=== PATIENT | male | born 1935 | race Caucasian/White ===

== ENCOUNTER 2016-10-14 15:34 | Emergency (ER) | payer OTHER ==
[2016-10-14 15:44] VITALS: TEMP 97.9; BMI 23.9
--- NOTE | 2016-10-14 18:26 | PDOC ---
History of Present Illness - General Chief Complaint: Pain Stated Complaint: RT SIDE/ ABD PAIN Time Seen by Provider: 10/14/16 17:11 History Source: Patient - History of Present Illness Timing/Duration: reports: intermittent Past History - Past Medical History Allergies/Adverse Reactions: Allergies Allergy/AdvReac Type Severity Reaction Status Date / Time No Known Allergies Allergy Verified 10/14/16 15:44 Home Medications: Ambulatory Orders Unobtainable [Unobtainable] 10/14/16 Cardiac Disorders: Yes Diabetes: Yes HTN: Yes Hypercholesterolemia: Yes - Surgical History Abdominal Surgery: Yes (hernia) Cardiac Surgery: Yes (BYPASS, PACEMAKER) - Psycho/Social/Smoking Cessation Hx Anxiety: No Suicidal Ideation: No Smoking Status: No Smoking History: Never smoked Number of Cigarettes Smoked Daily: 0 Information on smoking cessation initiated: No Review of Systems - Review of Systems Constitutional: No: Chills, Fever, Unintentional Wgt. Loss ABD/GI: No: Constipated, Diarrhea, Nausea, Vomiting : No: Dysuria, Flank Pain, Hematuria Musculoskeletal: No: Back Pain *Physical Exam - Vital Signs Last Vital Signs Temp Pulse Resp BP Pulse Ox 97.9 F 74 18 181/95 99 10/14/16 15:40 10/14/16 15:40 10/14/16 15:40 10/14/16 15:40 10/14/16 15:40 - Physical Exam General Appearance: Yes: Appropriately Dressed. No: Apparent Distress HEENT: positive: Normal Voice Neck: positive: Supple Respiratory/Chest: positive: Lungs Clear, Normal Breath Sounds. negative: Respiratory Distress Cardiovascular: positive: Regular Rate, S1, S2 Gastrointestinal/Abdominal: positive: Normal Bowel Sounds, Soft, Hernia ( reducible hernia to R inguinal region). negative: Tender, Distended, Guarding, Rebound Musculoskeletal: negative: CVA Tenderness Extremity: positive: Normal Inspection Integumentary: positive: Dry, Warm Neurologic: positive: Fully Oriented, Alert, Normal Mood/Affect ED Treatment Course - RADIOLOGY Radiology Studies Ordered: Category Date Time Status ABDOMEN & PELVIS CT WITH CONTR [CT] Stat CT Scan 10/14/16 18:17 Ordered Medical Decision Making - Medical Decision Making 10/14/16 18:22 81-year-old male history of HTN, HLD, IDDM, CAD, s/p CABG, s/p ? repair of L inguinal hernia remotely, currently has right inguinal hernia, presents with intermittent pain to left groin 3 months. Admits that pain did not get worse today, but decided to come be evaluated for the first time. No nausea, vomiting , constipation, diarrhea, fever or chills. See exam L groin pain x 3 months No associated sxs Pain free in ED Well tracy and stable w/ large reducible hernia to R groin, no obvious hernia to L groin -labs -consider CT 10/14/16 18:25
[2016-10-14 18:45] LABS: BASOPHIL 0.3 % (0-2.0); EOSINOPHIL 1.1 % (0-4.5); MCH 25.9 pg (25.7-33.7); MEAN CELL VOLUME 80.8 fl (80-96); MEAN PLT VOLUME 8.2 fl (7.5-11.1); NEUTROPHILS 61.7 % (42.8-82.8); PLATELET COUNT 91 K/MM3 (134-434); RDW 18.5 % (11.9-15.9); WHITE BLOOD COUNT 4.7 K/mm3 (4.0-10.0)
[2016-10-14 19:07] LABS: ANION GAP 9 (8-16); CALCIUM 9.2 mg/dL (8.5-10.1); CO2 28 mmol/L (21-32); CREATININE 1.4 mg/dL (0.7-1.3); GLUCOSE,RANDOM 95 mg/dL (74-106); SGOT/AST 18 U/L (15-37); SGPT/ALT 12 U/L (12-78)
[2016-10-14 19:09] LABS: ALK PHOS 102 U/L (45-117); BILIRUBIN,TOTAL 0.7 mg/dL (0.2-1.0); TOT PROT 7.9 g/dl (6.4-8.2)
--- NOTE | 2016-10-14 19:36 | PDOC ---
*Physical Exam - Vital Signs Last Vital Signs Temp Pulse Resp BP Pulse Ox 97.9 F 74 18 181/95 99 10/14/16 15:40 10/14/16 15:40 10/14/16 15:40 10/14/16 15:40 10/14/16 15:40 ED Treatment Course - LABORATORY CBC & Chemistry Diagram: 10/14/16 18:07 10/14/16 18:07 - ADDITIONAL ORDERS Additional order review: Laboratory Results 10/14/16 18:07 Sodium 138 Potassium 4.2 Chloride 101 Carbon Dioxide 28 Anion Gap 9 BUN 28 H D Creatinine 1.4 H D Creat Clearance w eGFR 48.40 Random Glucose 95 D Calcium 9.2 Total Bilirubin 0.7 D AST 18 D ALT 12 D Alkaline Phosphatase 102 Total Protein 7.9 Albumin 4.0 Lipase 174 10/14/16 18:07 RBC 3.06 L D MCV 80.8 MCHC 32.0 RDW 18.5 H D MPV 8.2 Neutrophils % 61.7 D Lymphocytes % 26.9 D Monocytes % 10.0 D Eosinophils % 1.1 D Basophils % 0.3 - RADIOLOGY Radiology Studies Ordered: Category Date Time Status ABDOMEN & PELVIS CT W/O CONTR [CT] Stat CT Scan 10/14/16 19:35 Ordered Medical Decision Making - Medical Decision Making 10/14/16 22:00 CT reviewed. "CT report as follows: Interval enlargement of focal mass lesion noted in the centered immediately below the aortic bifurcation. This lesion demonstrates soft tissue density could be on a basis of lymphadenopathy or given the location process possibly representing a pheochromocytoma. 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 No CT evidence of acute appendicitis or diverticulitis. Marked prostate enlargement. Right hip joint space narrowing. Comparison to previous study. A ventricular stent is seen within the partially imaged descending thoracic aorta extending into the upper abdominal aorta the fusiform aortic aneurysm at the level appears mildly increased in diameter currently measuring 4.7 cm previously 4.4 cm. Right inguinal hernia is again noted any short segment of small bowel loop no bowel dilatation is seen." No acute findingd. will refer patient to pmd for close monitoring. strict return precautions reviewed with patient. *DC/Admit/Observation/Transfer Diagnosis at time of Disposition: Inguinal hernia of right side without obstruction or gangrene - Discharge Dispostion Disposition: HOME - Patient Instructions Printed Discharge Instructions: Groin Hernia -- Adult Additional Instructions: follow up with your doctor as soon as possible. return to the ER if symptoms worsen.
[2016-10-14] MEDS ORDERED: amLODIPine BESYLATE 10 MG TABLET (FP) PO ONE (19:52)
[2016-10-14] MEDS ORDERED: amLODIPine BESYLATE 5 MG TABLET (FP) ONE (19:53)
[2016-10-14 22:44] VITALS: BP 146/82; PULSE 70
== END 2016-10-14 22:44 | disposition home or self-care (01) ==
LOC: JER 15:34
DX: R10.32 Left lower quadrant pain (principal); K40.90 Unilateral inguinal hernia, without obstruction or gangrene, not specified as recurrent; E11.9 Type 2 diabetes mellitus without complications; E78.00 Pure hypercholesterolemia, unspecified; Z95.1 Presence of aortocoronary bypass graft; Z95.0 Presence of cardiac pacemaker
CPT/HCPCS: 36415; 74176-TC; 80053; 82272; 83690; 85025; 99282-25

== ENCOUNTER 2017-01-19 16:18 | Emergency (ER) | payer OTHER ==
[2017-01-19 16:30] VITALS: PULSE 77; TEMP 97.5; BMI 23.0
--- NOTE | 2017-01-19 17:11 | PDOC ---
History of Present Illness - General Chief Complaint: Blood Pressure Problem Stated Complaint: BLOOD PRESSURE PROBLEM Time Seen by Provider: 01/19/17 16:44 History Source: Patient Exam Limitations: No Limitations - History of Present Illness Initial Comments: 01/19/17 17:12 81y M hx of CAD s/p CABG, sp PM, htn, hl, dm, hypothrydoism,bph, presents for evaluation of hypertension. The pt was at the PMDs office for follow up and they found his BP to be 210/110. He was given an extra dose of his amlodipine, but his BP did not improve substantially so was sent to the ED for evaluation. The pt denies any compalints including dizziness, headache, vision changes, numbness/tingling/weakness, chest pain, shortness of breath. pt states he has been complaint with his medications. denies significant caffeien use (only 1 cup of coffee in the AM which is his baseline) - no OTC meds, no recent uris. social: denies any recreational drug use. surgical: cabg, s/p pm PMD dr. Mccracken Past History - Past Medical History Allergies/Adverse Reactions: Allergies Allergy/AdvReac Type Severity Reaction Status Date / Time No Known Allergies Allergy Verified 01/19/17 16:30 Home Medications: Ambulatory Orders Amlodipine Besylate 10 mg PO DAILY 01/19/17 Aspirin [Amanda Chewable] 81 mg PO DAILY 01/19/17 Atorvastatin Ca [Lipitor] 20 mg PO HS 01/19/17 Carvedilol [Coreg] 6.25 mg PO BID 01/19/17 Ferrous Sulfate [Feosol] 325 mg PO DAILY 01/19/17 Glipizide [Glucotrol Xl] 10 mg PO BID 01/19/17 Levothyroxine [Synthroid -] 125 mcg PO DAILY 01/19/17 Linagliptin [Tradjenta] 01/19/17 Linagliptin [Tradjenta] 5 mg PO 01/19/17 Losartan/Hydrochlorothiazide [Losartan-Hctz 50-12.5 mg Tab] 1 each PO DAILY 07/03 Cardiac Disorders: Yes (Pacemaker) Diabetes: Yes HTN: Yes Hypercholesterolemia: Yes Thyroid Disease: Yes - Surgical History Abdominal Surgery: Yes (hernia) Cardiac Surgery: Yes (BYPASS, PACEMAKER) - Suicide/Smoking/Psychosocial Hx Smoking Status: No Smoking History: Never smoked Have you smoked in the past 12 months: No Number of Cigarettes Smoked Daily: 0 Information on smoking cessation initiated: No Hx Alcohol Use: No Drug/Substance Use Hx: No Substance Use Type: None Review of Systems - Review of Systems Able to Perform ROS?: Yes Comments:: 01/19/17 17:21 Constitutional - no reported Fever, Chills, HEENT: no reported vision changes, sore throat Respiratory: no reported cough, sob, hemoptysis Cardiac: no reported chest pain, palpitations, light headedness, leg swelling Abd/GI: no reported abd pain, nausea, vomiting, blood per rectum, melena, diarrhea : no reported dysuria, frequency, discharge Musculskelatal - no reported back pain, joint swelling skin - no reported bruising, erythema, rash neurological: no reported headache, numbness, focal weakness, tingling, ataxia, hematologic: no reported anemia, easy bruising, easy bleeding *Physical Exam - Vital Signs Last Vital Signs Temp Pulse Resp BP Pulse Ox 97.5 F L 77 16 205/116 98 01/19/17 16:28 01/19/17 16:28 01/19/17 16:28 01/19/17 16:28 01/19/17 16:28 - Physical Exam Comments: 01/19/17 17:22 GENERAL: The patient is awake, alert, and fully oriented, Nontoxic - in no acute distress. HEAD: Normocephalic, atraumatic. EYES: extraocular movements intact, sclera anicteric, conjunctiva clear. ENT: Normal voice, Moist mucous membranes. NECK: Normal range of motion, supple LUNGS: Breath sounds equal, clear to auscultation bilaterally. No wheezes, no rhonchi, no rales. HEART: well healed mid line sternatomy scar, pm in placeRegular rate and rhythm , normal S1 and S2 without murmur, rub or gallop. ABDOMEN: Soft, nontender, normoactive bowel sounds. No guarding, no rebound. . No CVA tenderness EXTREMITIES: Normal range of motion, trace edema. No clubbing or cyanosis. No cords, erythema, or tenderness. NEUROLOGICAL: No facial assymetry, Normal speech, PSYCH: Normal mood, normal affect. SKIN: Warm, Dry, normal turgor, Heart Score/ECG Review - ECG Impressions Comment:: 01/19/17 17:23 Twelve-lead EKG was performed and reviewed by me. Atrial sensed ventricular pacing rate of 75 Medical Decision Making - Medical Decision Making 01/19/17 17:23 81y M hx of dm, htn, hl, cad, bph, hypothyfoidsim sent to the ED for eavluation of hypertension. pt otherwise asypmtmatic with unremarakble exam pts receved dose of htn meds approx 2 hrs ago at PMD office will reasess bp, if normal will consider d/c with outpatient management 01/19/17 17:46 bp significantly improved will dc the pt with pmd fu for bp check return precautions were discussed I discussed the physical exam findings, ancillary test results and final diagnoses with the patient. I answered all of the patient's questions. The patient was satisfied with the care received and felt comfortable with the discharge plan and treatment plan. The patient will call their primary care physician within 24 hours to arrange follow-up and will return to the Emergency Department with any new, persistent or worsening symptoms. *DC/Admit/Observation/Transfer Diagnosis at time of Disposition: Hypertension Qualifiers: Hypertension type: essential hypertension Qualified Code(s): I10 - Essential ( primary) hypertension - Discharge Dispostion Disposition: HOME Condition at time of disposition: Improved Admit: No - Referrals Referrals: Olive Mccracken MD [Primary Care Provider] - - Patient Instructions Printed Discharge Instructions: DI for High Blood Pressure, How to Monitor Your Blood Pressure at Home Additional Instructions: Vuelva al departamento de emergencia inmediatamente con CUALQUIER nuevo, persistente o empeorando sntomas. Debe llamar y hacer el seguimiento con matthews mdico en 2 hall para maurice evaluacin m s detallada de jeb sntomas. Los resultados fueron discutidos con usted. Por favor, asegrese de que matthews mdico revise los resultados de matthews evaluacin de emergencia. Si usted tuvo alguna radiografa migdalia matthews visita, fue yanick preliminarmente por m mismo, un radilogo lo revisar y si hay algn hallazgo adicional le llamaremos. Return to the emergency department immediately with ANY new, persistent or worsening symptoms. You MUST call and follow up with your doctor in 2 days for further evaluation of your symptoms. Results were discussed with you. Please make sure your doctor reviews the results of your emergency evaluation. If you had any xrays during your visit, it was read preliminarily by myself, a Radiologist will review it and if there are any additional findings we will call you. Print Language: ROMANIAN
[2017-01-19 17:37] VITALS: BP 162/89
--- NOTE | 2017-01-20 10:40 | EKG ---
Test Reason : Blood Pressure : / mmHG Vent. Rate : 075 BPM Atrial Rate : 075 BPM P-R Int : 118 ms QRS Dur : 142 ms QT Int : 416 ms P-R-T Axes : 050 219 035 degrees QTc Int : 464 ms Atrial-sensed ventricular-paced rhythm WITH OCCASIONAL PREMATURE VENTRICULAR COMPLEXES Biventricular pacemaker detected ABNORMAL ECG WHEN COMPARED WITH ECG OF 24-AUG-2011 11:28, PREMATURE VENTRICULAR COMPLEXES ARE NOW PRESENT VENT. RATE HAS DECREASED BY 38 BPM Confirmed by SANDEEP BUTLER MD ([id number]) on 01/20/2017 10:40:33 AM Referred By: Confirmed By:SANDEEP BUTLER MD
== END 2017-01-19 18:08 | disposition home or self-care (01) ==
LOC: JER 16:18
DX: I10 Essential (primary) hypertension (principal); I25.810 Atherosclerosis of coronary artery bypass graft(s) without angina pectoris; Z95.1 Presence of aortocoronary bypass graft; Z95.0 Presence of cardiac pacemaker; E11.9 Type 2 diabetes mellitus without complications; E78.00 Pure hypercholesterolemia, unspecified; N40.0 Benign prostatic hyperplasia without lower urinary tract symptoms
CPT/HCPCS: 93005; 93010; 99282-25

== ENCOUNTER 2017-10-01 13:05 | Emergency (ER) | payer OTHER ==
[2017-10-01 13:16] VITALS: BMI 25.7
[2017-10-01 13:27] LABS: BASO % 0.7 % (0-2.0); EOS % 0.2 % (0-4.5); HEMATOCRIT 37.7 % (35.4-49); HEMOGLOBIN 12.7 GM/dL (11.7-16.9); LYMPH % 19.2 % (8-40); MCH 29.1 pg (25.7-33.7); MCHC 33.8 g/dl (32.0-35.9); MEAN CELL VOLUME 86.1 fl (80-96); MONO % 8.9 % (3.8-10.2); PLATELET COUNT 112 K/MM3 (134-434); RBC 4.38 M/mm3 (4.00-5.60); RDW 16.2 % (11.9-15.9); WHITE BLOOD COUNT 5.8 K/mm3 (4.0-10.0)
[2017-10-01 13:51] LABS: ALBUMIN 3.7 g/dl (3.4-5.0); ANION GAP 5 (8-16); BLOOD UREA NITROGEN 33 mg/dL (7-18); CHLORIDE 102 mmol/L (98-107); CO2 29 mmol/L (21-32); CREATININE 1.5 mg/dL (0.7-1.3); GLUCOSE,RANDOM 222 mg/dL (74-106); POTASSIUM 4.2 mmol/L (3.5-5.1); SGOT/AST 22 U/L (15-37); SGPT/ALT 23 U/L (12-78); SODIUM 136 mmol/L (136-145)
[2017-10-01 13:54] LABS: ALK PHOS 123 U/L (45-117); BILIRUBIN,TOTAL 1.1 mg/dL (0.2-1.0); TOT PROT 8.1 g/dl (6.4-8.2)
--- NOTE | 2017-10-01 14:16 | PDOC ---
History of Present Illness <Rick Peacock - Last Filed: 10/01/17 14:34> <Jim Hernandez - Last Filed: 10/01/17 15:26> - General Chief Complaint: Blood Pressure Problem Stated Complaint: HTN Time Seen by Provider: 10/01/17 13:18 - History of Present Illness Initial Comments: 10/01/17 14:16 81y M hx of CAD s/p CABG, sp PM, htn, hl, dm, hypothrydoism,bph, presents for evaluation of hypertension. The pt was at the Ds office for follow up and they found his BP in the 200's. Sent to ED for evaluation. Patient currently asymptomatic. 10/01/17 14:33 (Rick Peacock) Past History - Past Medical History Cardiac Disorders: Yes (Pacemaker) COPD: No Diabetes: Yes HTN: Yes Hypercholesterolemia: Yes Thyroid Disease: Yes - Surgical History Abdominal Surgery: Yes (hernia) Cardiac Surgery: Yes (BYPASS, PACEMAKER) - Immunization History Immunization Up to Date: Yes - Suicide/Smoking/Psychosocial Hx Smoking Status: No Smoking History: Never smoked Have you smoked in the past 12 months: No Number of Cigarettes Smoked Daily: 0 Hx Alcohol Use: No Drug/Substance Use Hx: No Substance Use Type: None <Rick Peacock - Last Filed: 10/01/17 14:34> <Jim Hernandez - Last Filed: 10/01/17 15:26> - Past Medical History Allergies/Adverse Reactions: Allergies Allergy/AdvReac Type Severity Reaction Status Date / Time No Known Allergies Allergy Verified 01/19/17 16:30 Home Medications: Ambulatory Orders Amlodipine Besylate 10 mg PO DAILY 01/19/17 Aspirin [Amanda Chewable] 81 mg PO DAILY 01/19/17 Atorvastatin Ca [Lipitor] 20 mg PO HS 01/19/17 Carvedilol [Coreg] 6.25 mg PO BID 01/19/17 Ferrous Sulfate [Feosol] 325 mg PO DAILY 01/19/17 Glipizide [Glucotrol Xl] 10 mg PO BID 01/19/17 Levothyroxine [Synthroid -] 125 mcg PO DAILY 01/19/17 Linagliptin [Tradjenta] 01/19/17 Linagliptin [Tradjenta] 5 mg PO 01/19/17 Losartan/Hydrochlorothiazide [Losartan-Hctz 50-12.5 mg Tab] 1 each PO DAILY 07/03 Review of Systems - Review of Systems Able to Perform ROS?: Yes Is the patient limited Belarusian proficient: No Constitutional: No: Symptoms Reported HEENTM: No: Symptoms Reported Respiratory: No: Symptoms reported Cardiac (ROS): No: Symptoms Reported ABD/GI: No: Symptoms Reported : No: Symptoms Reported Musculoskeletal: No: Symptoms Reported Integumentary: No: Symptoms Reported Neurological: No: Symptoms reported All Other Systems: Reviewed and Negative <Rick Peacock - Last Filed: 10/01/17 14:34> *Physical Exam - Physical Exam General Appearance: Yes: Nourished, Appropriately Dressed. No: Apparent Distress HEENT: positive: LEAH, Normal ENT Inspection Respiratory/Chest: positive: Lungs Clear, Normal Breath Sounds. negative: Chest Tender, Respiratory Distress Cardiovascular: positive: Regular Rhythm, Regular Rate, S1, S2 Gastrointestinal/Abdominal: positive: Normal Bowel Sounds, Flat, Soft. negative : Tender Musculoskeletal: positive: Normal Inspection. negative: CVA Tenderness Extremity: positive: Normal Capillary Refill, Normal Inspection, Normal Range of Motion Neurologic: positive: Fully Oriented, Alert, Normal Mood/Affect, Normal Response , Motor Strength 5/5 <Rick Peacock - Last Filed: 10/01/17 14:34> - Vital Signs Last Vital Signs Temp Pulse Resp BP Pulse Ox 97.4 F L 65 20 175/84 98 10/01/17 13:14 10/01/17 13:14 10/01/17 13:14 10/01/17 13:14 10/01/17 13:17 ED Treatment Course - LABORATORY CBC & Chemistry Diagram: 10/01/17 13:14 10/01/17 13:14 <Rick Peacock - Last Filed: 10/01/17 14:34> - LABORATORY CBC & Chemistry Diagram: 10/01/17 13:14 10/01/17 13:14 <Jim Hernandez - Last Filed: 10/01/17 15:26> - ADDITIONAL ORDERS Additional order review: Laboratory Results 10/01/17 13:14 Sodium 136 Potassium 4.2 Chloride 102 Carbon Dioxide 29 Anion Gap 5 L BUN 33 H Creatinine 1.5 H Creat Clearance w eGFR 44.59 Random Glucose 222 H D Calcium 9.0 Total Bilirubin 1.1 H D AST 22 D ALT 23 D Alkaline Phosphatase 123 H D Total Protein 8.1 Albumin 3.7 10/01/17 13:14 RBC 4.38 D MCV 86.1 MCHC 33.8 RDW 16.2 H MPV 8.0 Neutrophils % 71.0 Lymphocytes % 19.2 D Monocytes % 8.9 Eosinophils % 0.2 D Basophils % 0.7 - Medications Given in the ED: ED Medications Discontinued Medications Generic Name Dose Route Start Last Admin Trade Name Bi PRN Reason Stop Dose Admin Hydralazine HCl 10 mg 10/01/17 14:21 10/01/17 14:39 Apresoline Injection - IVPUSH 10/01/17 14:22 10 mg ONCE ONE Administration Medical Decision Making <Rick Peacock - Last Filed: 10/01/17 14:34> <Jim Hernandez - Last Filed: 10/01/17 15:26> - Medical Decision Making 10/01/17 14:34 82m sent from pcp for hypertensive urgency, asymptomatic. Basic labs, xray ray sent. - BP control with hydralizine. (Rick Peacock) *DC/Admit/Observation/Transfer - Discharge Dispostion Decision to Admit order: Yes <Rick Peacock - Last Filed: 10/01/17 14:34> <Jim Hernandez - Last Filed: 10/01/17 15:26> Diagnosis at time of Disposition: Asymptomatic hypertensive urgency - Discharge Dispostion Condition at time of disposition: Stable - Referrals Referrals: Mathew Desai MD [Primary Care Provider] - - Patient Instructions Printed Discharge Instructions: DI for High Blood Pressure Additional Instructions: Eat a low sodium diet. Take hydralazine new medication as prescribed. 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 Veronica Romero on Wednesday. Follow-up with her primary care provider on Wednesday Return to ED for any headache chest pain severe worsening symptoms or for any concerns. - Post Discharge Activity
[2017-10-01] MEDS ORDERED: hydrALAZINE HCL 20 MG/ML VIAL IVPUSH ONE (14:21)
--- NOTE | 2017-10-01 14:26 | PDOC ---
Attending Attestation - HPI HPI: 10/01/17 14:40 The patient is an 82 year old male with a significant past medical history of cardiac disorders (on pacemaker), hypertension, hyperlipidemia, hypothyroidism, and diabetes who presents to the emergency department for evaluation of high blood pressure (above 200). The patient reports being seen by Dr. Mccracken who advised him to visit the emergency department for admission secondary to hypertensive urgency. At presentation, the patient is asymptomatic. The patient denies chest pain, shortness of breath, headache, and dizziness. Denies fevers, chills, nausea, vomiting, diarrhea, and constipation. Allergies: NKDA Past surgical history: Hernia, pacemaker. Social history: No reported cigarette, alcohol, or drug use. PCP: Dr. Mathew Desai ([phone]) - Physicial Exam PE: Vitals: Triage Vital signs reviewed General Appearance: no acute distress, well nourished well developed, Head: Atraumatic, normocephalic Neck: Supple Chest Wall: Nontender Cardiac: Regular rate and rhythm, no murmurs, no rubs, no gallops, Lungs: Clear to auscultation bilateral, good air movement bilaterally, Abdomen: Soft, nondistended, normal bowel sounds, nontender to palpation Extremities: Full range of motion to all extremities, no cyanosis, clubbing, or edema Skin: Warm and dry, no rashes or lesions, no petechiae Psych: normal mood, normal affect - Medical Decision Making The patient is an 82 year old male with a significant past medical history of cardiac disorders (on pacemaker), hypertension, hyperlipidemia, hypothyroidism, and diabetes who presents to the emergency department for evaluation of high blood pressure. Plan: Cbc UA Chest X-ray 10/01/17 15:18 Case discussed with ANJEL Pierre under Luis Carlos's service. <Keri Kolb - Last Filed: 10/01/17 15:18> - Resident Resident Name: Rick Peacock - ED Attending Attestation I have performed the following: I have examined & evaluated the patient, The case was reviewed & discussed with the resident, I agree w/resident's findings & plan, Exceptions are as noted - Medical Decision Making Status post 10 mg hydralazine patient's blood pressure now well controlled. Spoke with covering attending we'll recommend by mouth hydralazine at home and follow-up on Wednesday with online retailer. Patient with no complaints at this time. No chest pain dizziness lightheadedness or shortness of breath. Patient in agreement with plan will follow up with cardiology on Wednesday Findings, the need for follow-up and strict return instructions discussed patient. <Jim Hernandez - Last Filed: 10/01/17 18:53> Attestations - Attestations Documentation prepared by Keri Kolb, acting as medical office technologist for Jim Hernandez MD. <Keri Kolb - Last Filed: 10/01/17 15:18>
[2017-10-01] MEDS ORDERED: hydrALAZINE HCL 20 MG/ML VIAL ONE (14:30)
[2017-10-01 14:58] LABS: PLATELET ESTIMATE DECREASED
[2017-10-01 15:38] VITALS: BP 140/80; PULSE 87; TEMP 98.3
[2017-10-01 15:46] LABS: URINE APPEARANCE CLEAR; URINE BILIRUBIN NEGATIVE (<2.0 mg/dL); URINE BLOOD 2+ (NEGATIVE); URINE COLOR YELLOW; URINE GLUCOSE (UA) 3+ (NEGATIVE); URINE KETONE NEGATIVE (NEGATIVE); URINE LEUK ESTERASE NEGATIVE (NEGATIVE); URINE NITRITE NEGATIVE (NEGATIVE); URINE UROBILINOGEN NEGATIVE mg/dL (0.2-1.0)
[2017-10-01 15:47] LABS: URINE PROTEIN 2+ (NEGATIVE)
[2017-10-01 15:48] LABS: EPI CELLS RARE /HPF (FEW); URINE HYALINE CAST 24 /lpf; URINE MUCUS RARE
--- NOTE | 2017-10-02 08:34 | EKG ---
Test Reason : Blood Pressure : / mmHG Vent. Rate : 068 BPM Atrial Rate : 068 BPM P-R Int : 116 ms QRS Dur : 130 ms QT Int : 424 ms P-R-T Axes : 044 203 042 degrees QTc Int : 450 ms Atrial-sensed ventricular-paced rhythm Biventricular pacemaker detected ABNORMAL ECG WHEN COMPARED WITH ECG OF 19-JAN-2017 16:58, PREMATURE VENTRICULAR COMPLEXES ARE NO LONGER PRESENT VENT. RATE HAS DECREASED BY 7 BPM Confirmed by CARRIE MITCHELL, SANDEEP ([id number]) on 10/02/2017 8:33:46 AM Referred By: Confirmed By:SANDEEP BUTLER MD
== END 2017-10-01 16:04 | disposition home or self-care (01) ==
LOC: JER 13:05
PROC: 3E033GC Introduction of Other Therapeutic Substance into Peripheral Vein, Percutaneous Approach (ICD-10-PCS; principal; 2017-10-01)
DX: I16.0 Hypertensive urgency (principal); I25.810 Atherosclerosis of coronary artery bypass graft(s) without angina pectoris; I10 Essential (primary) hypertension; Z95.1 Presence of aortocoronary bypass graft; Z95.0 Presence of cardiac pacemaker; E11.9 Type 2 diabetes mellitus without complications; Z79.84 Long term (current) use of oral hypoglycemic drugs; E78.00 Pure hypercholesterolemia, unspecified; E03.9 Hypothyroidism, unspecified; N40.0 Benign prostatic hyperplasia without lower urinary tract symptoms; Z79.82 Long term (current) use of aspirin
CPT/HCPCS: 36415; 71045-TC-FY; 80053; 81003; 81015; 85025; 93005; 93010; 96374; 99283-25

== ENCOUNTER 2020-03-05 12:39 | Inpatient (IN) | payer OTHER ==
[2020-03-05 12:47] VITALS: BMI 26.2
[2020-03-05 13:53] LABS: BASO % 0.5 % (0-2.0); EOS % 0.2 % (0-4.5); HEMOGLOBIN 10.4 GM/dL (11.7-16.9); LYMPH % 8.6 % (8-40); MCHC 32.4 g/dl (32.0-35.9); MEAN CELL VOLUME 80.3 fl (80-96); MEAN PLT VOLUME 7.3 fl (7.5-11.1); MONO % 18.2 % (3.8-10.2); NEUT % 72.5 % (42.8-82.8); PLATELET COUNT 108 K/MM3 (134-434); RBC 3.98 M/mm3 (4.00-5.60); RDW 17.1 % (11.9-15.9); WHITE BLOOD COUNT 3.2 K/mm3 (4.0-10.0)
[2020-03-05 13:57] LABS: EPI CELLS 13 /uL (0-25.1); HYALINE CASTS 11 /uL (0-3.1); URINE APPEARANCE CLEAR; URINE BACTERIA 11 /uL (0-1359); URINE BILIRUBIN NEGATIVE (NEGATIVE); URINE COLOR DK YELLOW; URINE GLUCOSE (UA) NEGATIVE (NEGATIVE); URINE KETONE TRACE (NEGATIVE); URINE LEUK ESTERASE NEGATIVE (NEGATIVE); URINE NITRITE NEGATIVE (NEGATIVE); URINE PROTEIN 1+ (NEGATIVE); URINE RBC 7 /uL (0-23.9); URINE WBC 6 /uL (0-25.8)
[2020-03-05] MEDS ORDERED: morphine CARPU-JECT 4 MG/1 ML DISP.SYRIN IVPUSH ONE (14:00)
[2020-03-05] MEDS ORDERED: SODIUM CHLORIDE 1,000 ML IV STA ×2 (14:00→17:25)
[2020-03-05 14:04] LABS: INR 1.13 (0.83-1.09); PROTHROMBIN TIME (PATIENT) 13.9 SEC (9.7-13.0)
[2020-03-05 14:06] LABS: ACTIVATED PTT 32.1 SECONDS (25.2-36.5)
[2020-03-05 14:17] LABS: CHLORIDE 100 mmol/L (98-107); POTASSIUM 4.1 mmol/L (3.5-5.1); SODIUM 134 mmol/L (136-145)
[2020-03-05 14:19] LABS: ALBUMIN 3.1 g/dl (3.4-5.0); ANION GAP 10 MMOL/L (8-16); BLOOD UREA NITROGEN 35.4 mg/dL (7-18); CALCIUM 9.9 mg/dL (8.5-10.1); CO2 24 mmol/L (21-32); GLUCOSE,RANDOM 207 mg/dL (74-106)
[2020-03-05 14:22] LABS: CREATININE 1.6 mg/dL (0.55-1.3); SGOT/AST 23 U/L (15-37); SGPT/ALT 12 U/L (13-61)
[2020-03-05 14:24] LABS: BILIRUBIN,TOTAL 1.2 mg/dL (0.2-1)
[2020-03-05 14:25] LABS: ALK PHOS 212 U/L (45-117)
[2020-03-05] MEDS ORDERED: morphine SULFATE 4 MG/ML VIAL ONE (14:41)
[2020-03-05 15:13] LABS: ANISOCYTOSIS 0; MACROCYTOSIS 0; PLATELET ESTIMATE DECREASED
[2020-03-05] MEDS ORDERED: ACETAMINOPHEN 1000 MG/100 ML VIAL (NON FORMULARY) IVPB ONE (18:17)
[2020-03-05] MEDS ORDERED: ACETAMINOPHEN INJECTION 100 ML IVPB ONE (18:38)
[2020-03-05] MEDS ORDERED: SODIUM CHLORIDE 1,000 ML IV SCH (20:00)
[2020-03-05] MEDS ORDERED: FUROSEMIDE 40 MG/4 ML INJECTABLE VIAL IVPUSH ONE (20:33)
[2020-03-05] MEDS ORDERED: ATORVASTATIN CA 20 MG TABLET (FP) PO SCH (22:00)
[2020-03-05] MEDS ORDERED: FUROSEMIDE 40 MG/4 ML INJECTABLE VIAL ONE (22:37)
[2020-03-05] MEDS: INSULIN SLIDING SCALE (NOVOLOG) 1 VIAL SQ SCH (22:43)
[2020-03-05] MEDS ORDERED: ENOXAPARIN NA (PORCINE) 30 MG/0.3 ML DISP.SYRIN SQ ONE (23:42)
[2020-03-05] MEDS: ENOXAPARIN NA (PORCINE) 30 MG/0.3 ML DISP.SYRIN SQ SCH (23:47)
[2020-03-06 06:07] LABS: HEMATOCRIT 29.6 % (35.4-49); HEMOGLOBIN 9.6 GM/dL (11.7-16.9); MCH 26.1 pg (25.7-33.7); MCHC 32.3 g/dl (32.0-35.9); MEAN CELL VOLUME 80.7 fl (80-96); MEAN PLT VOLUME 7.3 fl (7.5-11.1); PLATELET COUNT 100 K/MM3 (134-434); RBC 3.67 M/mm3 (4.00-5.60); RDW 17.4 % (11.9-15.9); WHITE BLOOD COUNT 2.8 K/mm3 (4.0-10.0)
[2020-03-06 06:17] LABS: POTASSIUM 3.9 mmol/L (3.5-5.1)
[2020-03-06 06:19] LABS: BLOOD UREA NITROGEN 32.4 mg/dL (7-18); CALCIUM 8.6 mg/dL (8.5-10.1); MAGNESIUM 1.6 mg/dL (1.8-2.4)
[2020-03-06 06:23] LABS: PHOSPHOROUS 4.2 mg/dL (2.5-4.9)
[2020-03-06 06:24] LABS: CREATININE 1.3 mg/dL (0.55-1.3)
[2020-03-06] MEDS ORDERED: LEVOTHYROXINE NA 25 MCG TABLET (FP) ONE (06:42)
[2020-03-06] MEDS: INSULIN SLIDING SCALE (NOVOLOG) 1 VIAL SQ SCH ×4 (06:54→21:05)
[2020-03-06] MEDS: LEVOTHYROXINE NA 75 MCG TABLET (FP) PO SCH (06:55)
[2020-03-06] MEDS ORDERED: TAMSULOSIN HCL 0.4 MG CAP ONE (08:41)
[2020-03-06] MEDS: TAMSULOSIN HCL 0.4 MG CAP PO SCH (08:49)
[2020-03-06] MEDS ORDERED: amLODIPine BESYLATE 5 MG TABLET (FP) PO SCH (10:00)
[2020-03-06] MEDS: ASPIRIN COATED 81 MG TABLET.EC PO SCH (11:49)
[2020-03-06 12:14] LABS: ALBUMIN 2.8 g/dl (3.4-5.0)
[2020-03-06 12:17] LABS: BILIRUBIN,DIRECT 0.6 mg/dL (0.0-0.2)
[2020-03-06 12:19] LABS: BILIRUBIN,TOTAL 1.4 mg/dL (0.2-1)
[2020-03-06] MEDS ORDERED: MAGNESIUM SULF 50% (8.12 MEQ/2 ML-1 GM VIAL) IVPB ONE (12:32)
[2020-03-06 15:26] LABS: HIV INTERPRETATION NEGATIVE (NEGATIVE)
[2020-03-06] MEDS: ENOXAPARIN NA (PORCINE) 30 MG/0.3 ML DISP.SYRIN SQ SCH (17:12)
[2020-03-07] MEDS: LEVOTHYROXINE NA 75 MCG TABLET (FP) PO SCH (06:07)
[2020-03-07] MEDS: INSULIN SLIDING SCALE (NOVOLOG) 1 VIAL SQ SCH ×4 (06:08→21:13)
[2020-03-07 08:03] LABS: BASO % 0.5 % (0-2.0); EOS % 0.3 % (0-4.5); HEMATOCRIT 28.4 % (35.4-49); HEMOGLOBIN 9.3 GM/dL (11.7-16.9); LYMPH % 12.2 % (8-40); MCH 26.1 pg (25.7-33.7); MCHC 32.9 g/dl (32.0-35.9); MEAN CELL VOLUME 79.3 fl (80-96); MEAN PLT VOLUME 7.5 fl (7.5-11.1); MONO % 21.5 % (3.8-10.2); NEUT % 65.5 % (42.8-82.8); PLATELET COUNT 103 K/MM3 (134-434); RBC 3.58 M/mm3 (4.00-5.60); RDW 17.4 % (11.9-15.9); WHITE BLOOD COUNT 2.5 K/mm3 (4.0-10.0)
[2020-03-07 08:30] LABS: POTASSIUM 3.9 mmol/L (3.5-5.1)
[2020-03-07 08:35] LABS: ALBUMIN 2.7 g/dl (3.4-5.0); BLOOD UREA NITROGEN 31.7 mg/dL (7-18); CALCIUM 8.7 mg/dL (8.5-10.1)
[2020-03-07 08:37] LABS: CREATININE 1.3 mg/dL (0.55-1.3)
[2020-03-07 08:40] LABS: BILIRUBIN,TOTAL 1.2 mg/dL (0.2-1); TOT PROT 6.8 g/dl (6.4-8.2)
[2020-03-07] MEDS: TAMSULOSIN HCL 0.4 MG CAP PO SCH (08:47)
[2020-03-07] MEDS: ASPIRIN COATED 81 MG TABLET.EC PO SCH (09:56)
[2020-03-07 10:07] LABS: ANISOCYTOSIS 1+; MACROCYTOSIS 0; PLATELET ESTIMATE DECREASED; TARGET CELLS 1+
[2020-03-07] MEDS: ENOXAPARIN NA (PORCINE) 30 MG/0.3 ML DISP.SYRIN SQ SCH (11:39)
[2020-03-07] MEDS ORDERED: FUROSEMIDE 40 MG TABLET (FP) PO ONE (16:21)
[2020-03-08 01:07] LABS: HEP B CORE AB, TOT Positive (Negative)
[2020-03-08] MEDS: INSULIN SLIDING SCALE (NOVOLOG) 1 VIAL SQ SCH ×3 (06:27→16:16)
[2020-03-08] MEDS: LEVOTHYROXINE NA 75 MCG TABLET (FP) PO SCH (06:28)
[2020-03-08 07:10] LABS: BASO % 0.3 % (0-2.0); EOS % 0.4 % (0-4.5); HEMATOCRIT 29.9 % (35.4-49); HEMOGLOBIN 9.7 GM/dL (11.7-16.9); LYMPH % 14.7 % (8-40); MCHC 32.5 g/dl (32.0-35.9); MEAN CELL VOLUME 80.1 fl (80-96); MEAN PLT VOLUME 7.3 fl (7.5-11.1); MONO % 20.3 % (3.8-10.2); NEUT % 64.3 % (42.8-82.8); PLATELET COUNT 106 K/MM3 (134-434); RBC 3.74 M/mm3 (4.00-5.60); RDW 17.5 % (11.9-15.9); WHITE BLOOD COUNT 2.6 K/mm3 (4.0-10.0)
[2020-03-08 07:20] LABS: POTASSIUM 3.9 mmol/L (3.5-5.1)
[2020-03-08 07:24] LABS: ALBUMIN 2.9 g/dl (3.4-5.0); BLOOD UREA NITROGEN 29.8 mg/dL (7-18); CALCIUM 9.1 mg/dL (8.5-10.1)
[2020-03-08 07:28] LABS: CREATININE 1.4 mg/dL (0.55-1.3)
[2020-03-08 07:29] LABS: BILIRUBIN,TOTAL 1.1 mg/dL (0.2-1)
[2020-03-08] MEDS: TAMSULOSIN HCL 0.4 MG CAP PO SCH (08:30)
[2020-03-08] MEDS: ENOXAPARIN NA (PORCINE) 30 MG/0.3 ML DISP.SYRIN SQ SCH (09:36)
[2020-03-08 09:54] VITALS: BP 114/62; PULSE 106; TEMP 98.4
[2020-03-08] MEDS ORDERED: CARVEDILOL 6.25 MG TABLET (FP) PO SCH (10:00)
[2020-03-08 10:59] LABS: ANISOCYTOSIS 1+; MACROCYTOSIS 1+; OVALOCYTE 1+; PLATELET ESTIMATE DECREASED
[2020-03-08] MEDS ORDERED: ATORVASTATIN CA 20 MG TABLET (FP) PO SCH (22:00)
== END 2020-03-08 16:44 | disposition home or self-care (01) | DRG 433 ==
LOC: JER 12:39 → JERBED 20:35 → MERGE 20:35 → J6WEST-2 03-06 09:56
PROVIDERS: ADMIT Hospitalist; ATTEND Family Medicine
DX: K74.60 Unspecified cirrhosis of liver (principal); J90 Pleural effusion, not elsewhere classified; N17.9 Acute kidney failure, unspecified; E87.2 Acidosis; D61.818 Other pancytopenia; E83.42 Hypomagnesemia; R59.1 Generalized enlarged lymph nodes; D64.9 Anemia, unspecified; I10 Essential (primary) hypertension; E11.9 Type 2 diabetes mellitus without complications; E03.9 Hypothyroidism, unspecified; N40.0 Benign prostatic hyperplasia without lower urinary tract symptoms; I25.10 Atherosclerotic heart disease of native coronary artery without angina pectoris; Z95.1 Presence of aortocoronary bypass graft; E78.5 Hyperlipidemia, unspecified; D69.6 Thrombocytopenia, unspecified; D72.819 Decreased white blood cell count, unspecified
CPT/HCPCS: 36415; 71045-TC-FY; 71275-TC; 74177-TC; 80048; 80053; 80076; 81003; 82105; 82232; 82272; 82607; 82728; 82746; 82962; 83036; 83516; 83540; 83550; 83605; 83735; 83880; 84100; 84155; 84165; 84443; 84484; 85025; 85027; 85045; 85610; 85730; 86038; 86704; 86706; 86707; 86708; 86709; 87040; 87086; 87340; 87389; 88300-TC; 93005; 93010; 93306-TC; 99285-25; C9803; J0131; U0003

== ENCOUNTER 2020-03-12 05:17 | Day surgery (SDC) | payer OTHER ==
[2020-03-11 15:46] VITALS: BMI 26.2
[2020-03-12 13:32] VITALS: BP 116/65; PULSE 104; TEMP 97.3
[2020-03-12 13:47] LABS: BF WBC & OTHER NUCLEATED CELLS 546 /mm3
[2020-03-12 15:00] LABS: BODY FLUID MACROPHAGES 18 %; BODY FLUID MESOTHELIAL 6 %
[2020-03-14 12:07] LABS: BODY FLUID ALBUMIN 2.7 g/dL (Not Estab.)
== END 2020-03-12 14:20 | disposition home or self-care (01) ==
LOC: JRADIR 05:17
PROVIDERS: ATTEND Family Medicine
PROC: 0W993ZZ Drainage of Right Pleural Cavity, Percutaneous Approach (ICD-10-PCS; principal; 2020-03-12)
PROC: BB4BZZZ Ultrasonography of Pleura (ICD-10-PCS; 2020-03-12)
DX: J90 Pleural effusion, not elsewhere classified (principal)
CPT/HCPCS: 36415; 71045-TC-FY; 76942; 82042; 82150; 82438; 82945; 83615; 83986; 84157; 84478; 87070; 87075; 87102; 87116; 87205; 87206; 87210; 88108; 88305-TC

== ENCOUNTER 2020-03-25 14:19 | Inpatient (IN) | payer OTHER ==
[2020-03-25 16:54] LABS: BASO % 0.5 % (0-2.0); EOS % 0.6 % (0-4.5); HEMATOCRIT 33.3 % (35.4-49); HEMOGLOBIN 10.6 GM/dL (11.7-16.9); LYMPH % 10.1 % (8-40); MCH 25.9 pg (25.7-33.7); MCHC 31.9 g/dl (32.0-35.9); MEAN CELL VOLUME 81.1 fl (80-96); MONO % 21.1 % (3.8-10.2); NEUT % 67.7 % (42.8-82.8); PLATELET COUNT 76 K/MM3 (134-434); RBC 4.11 M/mm3 (4.00-5.60); RDW 17.9 % (11.9-15.9)
[2020-03-25 16:56] LABS: INR 1.13 (0.83-1.09); PROTHROMBIN TIME (PATIENT) 13.8 SEC (9.7-13.0)
[2020-03-25 16:59] LABS: ACTIVATED PTT 33.1 SECONDS (25.2-36.5)
[2020-03-25 17:14] LABS: CHLORIDE 100 mmol/L (98-107); SODIUM 134 mmol/L (136-145)
[2020-03-25 17:16] LABS: ALBUMIN 3.2 g/dl (3.4-5.0); ANION GAP 12 MMOL/L (8-16); BLOOD UREA NITROGEN 39.4 mg/dL (7-18); CALCIUM 10.3 mg/dL (8.5-10.1); CO2 23 mmol/L (21-32); GLUCOSE,RANDOM 124 mg/dL (74-106)
[2020-03-25 17:19] LABS: CREATININE 2.1 mg/dL (0.55-1.3); SGPT/ALT 8 U/L (13-61)
[2020-03-25 17:20] LABS: SGOT/AST 22 U/L (15-37)
[2020-03-25 17:21] LABS: ALK PHOS 151 U/L (45-117); TOT PROT 7.6 g/dl (6.4-8.2)
[2020-03-25 18:07] LABS: ANISOCYTOSIS 2+; MACROCYTOSIS 0; OVALOCYTE 1+; PLATELET ESTIMATE DECREASED
[2020-03-25] MEDS ORDERED: VANCOMYCIN 1 GRAM (PRE-DOCKED) 1,000 MG/250 ML BAG IVPB ONE (19:44)
[2020-03-25] MEDS ORDERED: PIPERACILLIN/TAZOB 2.25 GM 2.25 GM/50 ML BAG IVPB ONE (19:44)
[2020-03-25] MEDS ORDERED: VANCOMYCIN 1 GM in D5W (PRE-DOCKED) 1,000 MG/250 ML IVPB ONE (19:45)
[2020-03-25] MEDS ORDERED: VANCOMYCIN 1 GM in D5W (PRE-DOCKED) 1,000 MG/250 ML IVPB SCH (20:00)
[2020-03-25] MEDS ORDERED: PIPERACILLIN/TAZOB 2.25 GM 2.25 GM in DEXTROSE 5%-WATER - 50 ML IVPB SCH (21:00)
[2020-03-25] MEDS ORDERED: PIPERACILLIN/TAZOBACTAM 2.25 GM VIAL IVPB ONE (22:44)
[2020-03-25] MEDS ORDERED: DEXTROSE 5%-WATER - 50 ML IVPB ONE (22:45)
[2020-03-25] MEDS: PIPERACILLIN/TAZOB 2.25 GM 2.25 GM in DEXTROSE 5%-WATER - 50 ML IVPB SCH (22:47)
[2020-03-25] MEDS: CARVEDILOL 3.125 MG TABLET (FP) PO SCH (22:47)
[2020-03-25] MEDS: INSULIN SLIDING SCALE (NOVOLOG) 1 VIAL SQ SCH (22:50)
[2020-03-25] MEDS ORDERED: diphenhydrAMINE HCL 25 MG CAPSULE (FP) PO ONE (23:12)
[2020-03-26 01:31] LABS: LDH 278 U/L (87-246)
[2020-03-26] MEDS ORDERED: DEXTROSE 5%-WATER - 50 ML IVPB ONE ×3 (02:03→16:59)
[2020-03-26] MEDS ORDERED: PIPERACILLIN/TAZOBACTAM 2.25 GM VIAL IVPB ONE ×3 (02:03→16:59)
[2020-03-26] MEDS: PIPERACILLIN/TAZOB 2.25 GM 2.25 GM in DEXTROSE 5%-WATER - 50 ML IVPB SCH ×5 (03:20→17:23)
[2020-03-26 03:33] LABS: SYPHILIS W/ RPR CONF NON-REACTIVE (NONREACTIVE)
[2020-03-26 04:01] LABS: HIV INTERPRETATION NEGATIVE (NEGATIVE)
[2020-03-26 04:55] LABS: EPI CELLS >36 /uL (0-25.1); HYALINE CASTS 21 /uL (0-3.1); URINE APPEARANCE CLOUDY; URINE BACTERIA 7 /uL (0-1359); URINE BILIRUBIN NEGATIVE (NEGATIVE); URINE COLOR YELLOW; URINE GLUCOSE (UA) NEGATIVE (NEGATIVE); URINE KETONE NEGATIVE (NEGATIVE); URINE LEUK ESTERASE NEGATIVE (NEGATIVE); URINE NITRITE NEGATIVE (NEGATIVE); URINE PROTEIN 1+ (NEGATIVE); URINE UROBILINOGEN 0.2 mg/dL (0.2-1.0); URINE WBC 19 /uL (0-25.8)
[2020-03-26 06:39] LABS: URINE RBC 80 /uL (0-23.9); YEAST rare (NEGATIVE)
[2020-03-26] MEDS: INSULIN SLIDING SCALE (NOVOLOG) 1 VIAL SQ SCH ×4 (06:41→21:52)
[2020-03-26] MEDS: LEVOTHYROXINE NA 75 MCG TABLET (FP) PO SCH (06:41)
[2020-03-26 07:21] LABS: BASO % 0.5 % (0-2.0); EOS % 0.8 % (0-4.5); HEMATOCRIT 29.7 % (35.4-49); HEMOGLOBIN 9.7 GM/dL (11.7-16.9); LYMPH % 11.2 % (8-40); MCH 26.4 pg (25.7-33.7); MCHC 32.7 g/dl (32.0-35.9); MEAN CELL VOLUME 80.8 fl (80-96); MEAN PLT VOLUME 7.3 fl (7.5-11.1); NEUT % 63.5 % (42.8-82.8); PLATELET COUNT 65 K/MM3 (134-434); RBC 3.67 M/mm3 (4.00-5.60); RDW 18.1 % (11.9-15.9); WHITE BLOOD COUNT 2.7 K/mm3 (4.0-10.0)
[2020-03-26 07:49] LABS: ALBUMIN 2.8 g/dl (3.4-5.0); CALCIUM 9.7 mg/dL (8.5-10.1); MAGNESIUM 2.1 mg/dL (1.8-2.4)
[2020-03-26 07:51] LABS: BILIRUBIN,TOTAL 1.2 mg/dL (0.2-1); CREATININE 2.1 mg/dL (0.55-1.3); PHOSPHOROUS 4.3 mg/dL (2.5-4.9); TOT PROT 6.9 g/dl (6.4-8.2)
[2020-03-26] MEDS ORDERED: FERROUS SO4 325 MG TABLET (FP) PO SCH (10:00)
[2020-03-26] MEDS ORDERED: PATIENT'S OWN MEDICATION (NON-FORMULARY) (Ferrous Sulfate [Feosol] 325 MG Tablet) PO SCH (10:00)
[2020-03-26] MEDS ORDERED: PT OWN MED DRAWER 7, Y5N ONE (10:47)
[2020-03-26 10:48] LABS: ANISOCYTOSIS 0; MACROCYTOSIS 1+; PLATELET ESTIMATE DECREASED
[2020-03-26] MEDS: ZINC SULFATE 220 MG CAPSULE (FP) PO SCH (10:52)
[2020-03-26] MEDS: CARVEDILOL 3.125 MG TABLET (FP) PO SCH ×2 (10:53→21:51)
[2020-03-26] MEDS: ASCORBIC ACID 500 MG TABLET (FP) PO SCH (10:53)
[2020-03-26] MEDS: CHOLECALCIFEROL (VIT D3) 400 UNIT (10 MCG) TABLET PO SCH (10:53)
[2020-03-26] MEDS: FERROUS SO4 325 MG TABLET (FP) PO SCH (10:53)
[2020-03-26] MEDS: VITAMIN B COMPLEX W/C COMBO TABLET (FP) PO SCH (12:26)
[2020-03-26] MEDS: APIXABAN 2.5 MG TABLET PO SCH (21:51)
[2020-03-26] MEDS ORDERED: APIXABAN 5 MG TABLET PO SCH (22:00)
[2020-03-27] MEDS ORDERED: PIPERACILLIN/TAZOBACTAM 2.25 GM VIAL IVPB ONE ×3 (02:53→17:05)
[2020-03-27] MEDS ORDERED: DEXTROSE 5%-WATER - 50 ML IVPB ONE ×3 (02:53→17:06)
[2020-03-27] MEDS: PIPERACILLIN/TAZOB 2.25 GM 2.25 GM in DEXTROSE 5%-WATER - 50 ML IVPB SCH ×2 (03:04→10:43)
[2020-03-27] MEDS: LEVOTHYROXINE NA 75 MCG TABLET (FP) PO SCH (06:32)
[2020-03-27] MEDS: INSULIN SLIDING SCALE (NOVOLOG) 1 VIAL SQ SCH ×4 (06:36→21:56)
[2020-03-27] MEDS ORDERED: PT OWN MED DRAWER 7, Y5N ONE (10:26)
[2020-03-27] MEDS: APIXABAN 2.5 MG TABLET PO SCH ×2 (10:43→21:51)
[2020-03-27] MEDS: ZINC SULFATE 220 MG CAPSULE (FP) PO SCH (10:43)
[2020-03-27] MEDS: CARVEDILOL 3.125 MG TABLET (FP) PO SCH ×2 (10:43→21:51)
[2020-03-27] MEDS: CHOLECALCIFEROL (VIT D3) 400 UNIT (10 MCG) TABLET PO SCH (10:43)
[2020-03-27] MEDS: ASCORBIC ACID 500 MG TABLET (FP) PO SCH (10:43)
[2020-03-27] MEDS: VITAMIN B COMPLEX W/C COMBO TABLET (FP) PO SCH (10:43)
[2020-03-27] MEDS: FERROUS SO4 325 MG TABLET (FP) PO SCH (10:43)
[2020-03-27] MEDS ORDERED: HYDROCORTISONE 0.5% TOPICAL OINTMENT TUBE TP SCH ×2 (11:00→22:00)
[2020-03-27 11:01] LABS: BASO % 0.5 % (0-2.0); EOS % 0.9 % (0-4.5); HEMATOCRIT 30.9 % (35.4-49); HEMOGLOBIN 10.1 GM/dL (11.7-16.9); LYMPH % 13.5 % (8-40); MCH 26.7 pg (25.7-33.7); MCHC 32.6 g/dl (32.0-35.9); MEAN PLT VOLUME 7.6 fl (7.5-11.1); MONO % 22.4 % (3.8-10.2); NEUT % 62.7 % (42.8-82.8); PLATELET COUNT 66 K/MM3 (134-434); RBC 3.76 M/mm3 (4.00-5.60); RDW 18.2 % (11.9-15.9); WHITE BLOOD COUNT 2.5 K/mm3 (4.0-10.0)
[2020-03-27 11:11] LABS: ALBUMIN 2.9 g/dl (3.4-5.0); BLOOD UREA NITROGEN 49.8 mg/dL (7-18); CALCIUM 9.8 mg/dL (8.5-10.1); MAGNESIUM 2.2 mg/dL (1.8-2.4)
[2020-03-27 11:15] LABS: CREATININE 2.8 mg/dL (0.55-1.3)
[2020-03-27 11:17] LABS: BILIRUBIN,TOTAL 1.3 mg/dL (0.2-1)
[2020-03-27 12:00] LABS: ANISOCYTOSIS 1+; MACROCYTOSIS 0; OVALOCYTE 1+; PLATELET ESTIMATE DECREASED
[2020-03-27] MEDS ORDERED: INSULIN SLIDING SCALE (NOVOLOG) 1 VIAL SQ ONE (12:13)
[2020-03-27 12:41] LABS: EPI CELLS >36 /uL (0-25.1); HYALINE CASTS 12 /uL (0-3.1); URINE APPEARANCE TURBID; URINE BACTERIA 9 /uL (0-1359); URINE BILIRUBIN NEGATIVE (NEGATIVE); URINE COLOR DK YELLOW; URINE GLUCOSE (UA) NEGATIVE (NEGATIVE); URINE KETONE NEGATIVE (NEGATIVE); URINE LEUK ESTERASE NEGATIVE (NEGATIVE); URINE NITRITE NEGATIVE (NEGATIVE); URINE PROTEIN 1+ (NEGATIVE); URINE RBC 7 /uL (0-23.9); URINE UROBILINOGEN 0.2 mg/dL (0.2-1.0); URINE WBC 45 /uL (0-25.8)
[2020-03-27] MEDS: HYDROCORTISONE 1% TOPICAL OINT 30 GM TUBE TP SCH ×2 (16:52→21:51)
[2020-03-27] MEDS: DEXAMETHASONE SOD PHOSPHATE 4 MG/1 ML VIAL IVPUSH SCH (17:00)
[2020-03-28] MEDS: INSULIN SLIDING SCALE (NOVOLOG) 1 VIAL SQ SCH ×4 (06:09→21:52)
[2020-03-28] MEDS: LEVOTHYROXINE NA 75 MCG TABLET (FP) PO SCH (06:09)
[2020-03-28 09:07] LABS: BASO % 0.2 % (0-2.0); EOS % 0.1 % (0-4.5); HEMATOCRIT 32.7 % (35.4-49); HEMOGLOBIN 10.4 GM/dL (11.7-16.9); LYMPH % 7.4 % (8-40); MCH 25.7 pg (25.7-33.7); MCHC 31.7 g/dl (32.0-35.9); MEAN CELL VOLUME 81.1 fl (80-96); MEAN PLT VOLUME 7.1 fl (7.5-11.1); MONO % 9.2 % (3.8-10.2); NEUT % 83.1 % (42.8-82.8); PLATELET COUNT 72 K/MM3 (134-434); RBC 4.03 M/mm3 (4.00-5.60); RDW 18.1 % (11.9-15.9); WHITE BLOOD COUNT 2.7 K/mm3 (4.0-10.0)
[2020-03-28] MEDS ORDERED: PT OWN MED DRAWER 7, Y5N ONE (09:20)
[2020-03-28 09:23] LABS: ALBUMIN 2.9 g/dl (3.4-5.0); BLOOD UREA NITROGEN 53.4 mg/dL (7-18); CALCIUM 9.8 mg/dL (8.5-10.1); MAGNESIUM 2.4 mg/dL (1.8-2.4)
[2020-03-28] MEDS: CHOLECALCIFEROL (VIT D3) 400 UNIT (10 MCG) TABLET PO SCH (09:25)
[2020-03-28] MEDS: ASCORBIC ACID 500 MG TABLET (FP) PO SCH (09:25)
[2020-03-28] MEDS: ZINC SULFATE 220 MG CAPSULE (FP) PO SCH (09:25)
[2020-03-28] MEDS: CARVEDILOL 3.125 MG TABLET (FP) PO SCH ×2 (09:26→21:51)
[2020-03-28] MEDS: FERROUS SO4 325 MG TABLET (FP) PO SCH (09:26)
[2020-03-28] MEDS: DEXAMETHASONE SOD PHOSPHATE 4 MG/1 ML VIAL IVPUSH SCH (09:26)
[2020-03-28] MEDS: APIXABAN 2.5 MG TABLET PO SCH ×2 (09:26→21:51)
[2020-03-28 09:27] LABS: CREATININE 2.7 mg/dL (0.55-1.3)
[2020-03-28] MEDS: HYDROCORTISONE 1% TOPICAL OINT 30 GM TUBE TP SCH ×2 (09:27→21:52)
[2020-03-28] MEDS: VITAMIN B COMPLEX W/C COMBO TABLET (FP) PO SCH (09:27)
[2020-03-28 09:28] LABS: BILIRUBIN,TOTAL 0.8 mg/dL (0.2-1); TOT PROT 7.3 g/dl (6.4-8.2)
[2020-03-28 10:15] LABS: ANISOCYTOSIS 0; MACROCYTOSIS 0; PLATELET ESTIMATE DECREASED
[2020-03-28] MEDS ORDERED: SODIUM CHLORIDE 1,000 ML IV SCH (16:00)
[2020-03-29 06:54] LABS: BASO % 0.4 % (0-2.0); EOS % 0.1 % (0-4.5); HEMATOCRIT 28.1 % (35.4-49); LYMPH % 8.5 % (8-40); MCH 25.8 pg (25.7-33.7); MCHC 31.8 g/dl (32.0-35.9); MEAN PLT VOLUME 7.4 fl (7.5-11.1); MONO % 10.1 % (3.8-10.2); NEUT % 80.9 % (42.8-82.8); PLATELET COUNT 68 K/MM3 (134-434); RBC 3.48 M/mm3 (4.00-5.60); RDW 17.9 % (11.9-15.9); WHITE BLOOD COUNT 3.1 K/mm3 (4.0-10.0)
[2020-03-29] MEDS: INSULIN SLIDING SCALE (NOVOLOG) 1 VIAL SQ SCH ×4 (06:55→21:12)
[2020-03-29] MEDS: LEVOTHYROXINE NA 75 MCG TABLET (FP) PO SCH (06:58)
[2020-03-29 07:04] LABS: ALBUMIN 2.7 g/dl (3.4-5.0); BLOOD UREA NITROGEN 58.3 mg/dL (7-18); CALCIUM 9.6 mg/dL (8.5-10.1); MAGNESIUM 2.2 mg/dL (1.8-2.4)
[2020-03-29 07:08] LABS: CREATININE 2.3 mg/dL (0.55-1.3)
[2020-03-29 07:09] LABS: BILIRUBIN,TOTAL 0.6 mg/dL (0.2-1); TOT PROT 6.4 g/dl (6.4-8.2)
[2020-03-29] MEDS ORDERED: PT OWN MED DRAWER 7, Y5N ONE (09:34)
[2020-03-29] MEDS: ZINC SULFATE 220 MG CAPSULE (FP) PO SCH (09:53)
[2020-03-29] MEDS: CARVEDILOL 3.125 MG TABLET (FP) PO SCH ×2 (09:53→21:11)
[2020-03-29] MEDS: APIXABAN 2.5 MG TABLET PO SCH ×2 (09:53→21:11)
[2020-03-29] MEDS: FERROUS SO4 325 MG TABLET (FP) PO SCH (09:53)
[2020-03-29] MEDS: ASCORBIC ACID 500 MG TABLET (FP) PO SCH (09:53)
[2020-03-29] MEDS: CHOLECALCIFEROL (VIT D3) 400 UNIT (10 MCG) TABLET PO SCH (09:53)
[2020-03-29] MEDS: HYDROCORTISONE 1% TOPICAL OINT 30 GM TUBE TP SCH ×2 (09:53→21:12)
[2020-03-29] MEDS: VITAMIN B COMPLEX W/C COMBO TABLET (FP) PO SCH (09:53)
[2020-03-29 12:52] LABS: ANISOCYTOSIS 0; MACROCYTOSIS 1+; PLATELET ESTIMATE DECREASED
[2020-03-30] MEDS: INSULIN SLIDING SCALE (NOVOLOG) 1 VIAL SQ SCH ×4 (06:31→21:28)
[2020-03-30] MEDS: LEVOTHYROXINE NA 75 MCG TABLET (FP) PO SCH (06:31)
[2020-03-30] MEDS ORDERED: PT OWN MED DRAWER 7, Y5N ONE (09:30)
[2020-03-30] MEDS: APIXABAN 2.5 MG TABLET PO SCH ×2 (09:42→21:28)
[2020-03-30] MEDS: CHOLECALCIFEROL (VIT D3) 400 UNIT (10 MCG) TABLET PO SCH (09:42)
[2020-03-30] MEDS: HYDROCORTISONE 1% TOPICAL OINT 30 GM TUBE TP SCH ×2 (09:43→21:28)
[2020-03-30] MEDS: FERROUS SO4 325 MG TABLET (FP) PO SCH (09:43)
[2020-03-30] MEDS: ZINC SULFATE 220 MG CAPSULE (FP) PO SCH (09:43)
[2020-03-30] MEDS: ASCORBIC ACID 500 MG TABLET (FP) PO SCH (09:43)
[2020-03-30] MEDS: VITAMIN B COMPLEX W/C COMBO TABLET (FP) PO SCH (09:43)
[2020-03-30] MEDS: CARVEDILOL 3.125 MG TABLET (FP) PO SCH ×2 (09:43→21:28)
[2020-03-30] MEDS ORDERED: ACETAMINOPHEN 325 MG TABLET (FP) PO PRN (10:57)
[2020-03-30 12:06] LABS: BASO % 0.2 % (0-2.0); EOS % 0.8 % (0-4.5); HEMATOCRIT 31.8 % (35.4-49); HEMOGLOBIN 10.4 GM/dL (11.7-16.9); LYMPH % 12.4 % (8-40); MCH 26.6 pg (25.7-33.7); MCHC 32.5 g/dl (32.0-35.9); MEAN CELL VOLUME 81.7 fl (80-96); MEAN PLT VOLUME 7.6 fl (7.5-11.1); MONO % 16.1 % (3.8-10.2); NEUT % 70.5 % (42.8-82.8); PLATELET COUNT 62 K/MM3 (134-434); RDW 18.1 % (11.9-15.9); WHITE BLOOD COUNT 2.5 K/mm3 (4.0-10.0)
[2020-03-30 12:22] LABS: ALBUMIN 2.9 g/dl (3.4-5.0); BLOOD UREA NITROGEN 56.5 mg/dL (7-18); CALCIUM 10.2 mg/dL (8.5-10.1)
[2020-03-30 12:23] LABS: MAGNESIUM 2.1 mg/dL (1.8-2.4)
[2020-03-30 12:26] LABS: CREATININE 2.2 mg/dL (0.55-1.3)
[2020-03-30 12:27] LABS: BILIRUBIN,TOTAL 0.7 mg/dL (0.2-1)
[2020-03-30 14:32] LABS: ANISOCYTOSIS 0; MACROCYTOSIS 0; PLATELET ESTIMATE DECREASED
[2020-03-31] MEDS: INSULIN SLIDING SCALE (NOVOLOG) 1 VIAL SQ SCH ×4 (06:03→22:22)
[2020-03-31] MEDS: LEVOTHYROXINE NA 75 MCG TABLET (FP) PO SCH (06:03)
[2020-03-31] MEDS: APIXABAN 2.5 MG TABLET PO SCH ×2 (09:45→22:22)
[2020-03-31] MEDS: FERROUS SO4 325 MG TABLET (FP) PO SCH (09:45)
[2020-03-31] MEDS: ASCORBIC ACID 500 MG TABLET (FP) PO SCH (09:45)
[2020-03-31] MEDS: CHOLECALCIFEROL (VIT D3) 400 UNIT (10 MCG) TABLET PO SCH (09:45)
[2020-03-31] MEDS: ZINC SULFATE 220 MG CAPSULE (FP) PO SCH (09:45)
[2020-03-31] MEDS: CARVEDILOL 3.125 MG TABLET (FP) PO SCH ×2 (09:45→22:22)
[2020-03-31] MEDS: VITAMIN B COMPLEX W/C COMBO TABLET (FP) PO SCH (09:45)
[2020-03-31] MEDS: HYDROCORTISONE 1% TOPICAL OINT 30 GM TUBE TP SCH ×2 (09:46→22:23)
[2020-03-31 11:44] LABS: BASO % 0.2 % (0-2.0); EOS % 0.8 % (0-4.5); HEMATOCRIT 28.8 % (35.4-49); HEMOGLOBIN 9.2 GM/dL (11.7-16.9); LYMPH % 16.1 % (8-40); MCH 26.3 pg (25.7-33.7); MCHC 32.1 g/dl (32.0-35.9); MEAN CELL VOLUME 81.8 fl (80-96); MEAN PLT VOLUME 7.4 fl (7.5-11.1); MONO % 23.8 % (3.8-10.2); NEUT % 59.1 % (42.8-82.8); PLATELET COUNT 52 K/MM3 (134-434); RBC 3.52 M/mm3 (4.00-5.60); RDW 18.7 % (11.9-15.9); WHITE BLOOD COUNT 2.2 K/mm3 (4.0-10.0)
[2020-03-31 11:56] LABS: ALBUMIN 2.8 g/dl (3.4-5.0); MAGNESIUM 1.9 mg/dL (1.8-2.4)
[2020-03-31 11:57] LABS: BLOOD UREA NITROGEN 44.9 mg/dL (7-18)
[2020-03-31 11:59] LABS: CREATININE 1.7 mg/dL (0.55-1.3)
[2020-03-31 12:01] LABS: BILIRUBIN,TOTAL 0.8 mg/dL (0.2-1); TOT PROT 6.8 g/dl (6.4-8.2)
[2020-03-31 13:24] LABS: ANISOCYTOSIS 1+; MACROCYTOSIS 0; OVALOCYTE 1+; PLATELET ESTIMATE DECREASED
[2020-04-01] MEDS: INSULIN SLIDING SCALE (NOVOLOG) 1 VIAL SQ SCH ×4 (06:36→21:32)
[2020-04-01] MEDS: LEVOTHYROXINE NA 75 MCG TABLET (FP) PO SCH (06:37)
[2020-04-01 07:02] LABS: BASO % 0.3 % (0-2.0); EOS % 0.9 % (0-4.5); HEMATOCRIT 30.2 % (35.4-49); HEMOGLOBIN 9.8 GM/dL (11.7-16.9); LYMPH % 16.3 % (8-40); MCH 26.7 pg (25.7-33.7); MCHC 32.6 g/dl (32.0-35.9); MEAN CELL VOLUME 81.8 fl (80-96); MONO % 20.8 % (3.8-10.2); NEUT % 61.7 % (42.8-82.8); PLATELET COUNT 55 K/MM3 (134-434); RBC 3.69 M/mm3 (4.00-5.60); RDW 18.3 % (11.9-15.9)
[2020-04-01 07:21] LABS: ALBUMIN 2.9 g/dl (3.4-5.0); CALCIUM 9.9 mg/dL (8.5-10.1); MAGNESIUM 1.9 mg/dL (1.8-2.4)
[2020-04-01 07:25] LABS: BILIRUBIN,TOTAL 0.9 mg/dL (0.2-1); CREATININE 1.6 mg/dL (0.55-1.3); TOT PROT 6.8 g/dl (6.4-8.2)
[2020-04-01] MEDS: ZINC SULFATE 220 MG CAPSULE (FP) PO SCH (09:49)
[2020-04-01] MEDS: ASCORBIC ACID 500 MG TABLET (FP) PO SCH (09:49)
[2020-04-01] MEDS: FERROUS SO4 325 MG TABLET (FP) PO SCH (09:49)
[2020-04-01] MEDS: APIXABAN 2.5 MG TABLET PO SCH ×2 (09:49→21:32)
[2020-04-01] MEDS: CARVEDILOL 3.125 MG TABLET (FP) PO SCH ×2 (09:49→21:32)
[2020-04-01] MEDS: CHOLECALCIFEROL (VIT D3) 400 UNIT (10 MCG) TABLET PO SCH (09:49)
[2020-04-01] MEDS: HYDROCORTISONE 1% TOPICAL OINT 30 GM TUBE TP SCH ×2 (09:49→21:33)
[2020-04-01] MEDS: VITAMIN B COMPLEX W/C COMBO TABLET (FP) PO SCH (09:50)
[2020-04-01 10:07] LABS: WHITE BLOOD COUNT 1.8 K/mm3 (4.0-10.0)
[2020-04-01 10:12] LABS: ANISOCYTOSIS 1+; MACROCYTOSIS 0; PLATELET ESTIMATE DECREASED
[2020-04-01] MEDS ORDERED: BISACODYL 10 MG SUPP.RECT PR ONE (11:07)
[2020-04-01] MEDS: POLYETHYLENE GLYCOL 3350 119 GM BTL PO SCH (12:20)
[2020-04-01] MEDS: DOCUSATE SODIUM 100 MG CAPSULE (FP) PO SCH ×2 (13:26→21:32)
[2020-04-02] MEDS: DOCUSATE SODIUM 100 MG CAPSULE (FP) PO SCH ×3 (06:12→22:05)
[2020-04-02] MEDS: LEVOTHYROXINE NA 75 MCG TABLET (FP) PO SCH (06:12)
[2020-04-02] MEDS: INSULIN SLIDING SCALE (NOVOLOG) 1 VIAL SQ SCH ×4 (06:13→22:25)
[2020-04-02 07:47] LABS: BASO % 0.3 % (0-2.0); EOS % 0.5 % (0-4.5); HEMATOCRIT 31.2 % (35.4-49); HEMOGLOBIN 10.3 GM/dL (11.7-16.9); LYMPH % 13.4 % (8-40); MCH 26.8 pg (25.7-33.7); MEAN CELL VOLUME 81.1 fl (80-96); MEAN PLT VOLUME 8.3 fl (7.5-11.1); MONO % 21.9 % (3.8-10.2); NEUT % 63.9 % (42.8-82.8); PLATELET COUNT 60 K/MM3 (134-434); RBC 3.84 M/mm3 (4.00-5.60); RDW 18.4 % (11.9-15.9)
[2020-04-02 08:00] LABS: BLOOD UREA NITROGEN 40.8 mg/dL (7-18); MAGNESIUM 1.8 mg/dL (1.8-2.4)
[2020-04-02 08:03] LABS: CREATININE 1.6 mg/dL (0.55-1.3)
[2020-04-02 08:04] LABS: BILIRUBIN,TOTAL 0.9 mg/dL (0.2-1); TOT PROT 7.2 g/dl (6.4-8.2)
[2020-04-02] MEDS ORDERED: PT OWN MED DRAWER 7, Y5N ONE (09:25)
[2020-04-02] MEDS: ASCORBIC ACID 500 MG TABLET (FP) PO SCH (09:59)
[2020-04-02] MEDS: FERROUS SO4 325 MG TABLET (FP) PO SCH (09:59)
[2020-04-02] MEDS: ZINC SULFATE 220 MG CAPSULE (FP) PO SCH (09:59)
[2020-04-02] MEDS: CARVEDILOL 3.125 MG TABLET (FP) PO SCH ×2 (09:59→22:05)
[2020-04-02] MEDS: CHOLECALCIFEROL (VIT D3) 400 UNIT (10 MCG) TABLET PO SCH (09:59)
[2020-04-02] MEDS: APIXABAN 2.5 MG TABLET PO SCH ×2 (09:59→22:05)
[2020-04-02] MEDS: VITAMIN B COMPLEX W/C COMBO TABLET (FP) PO SCH (09:59)
[2020-04-02] MEDS: HYDROCORTISONE 1% TOPICAL OINT 30 GM TUBE TP SCH ×2 (10:00→22:05)
[2020-04-02] MEDS: POLYETHYLENE GLYCOL 3350 119 GM BTL PO SCH (10:00)
[2020-04-02 11:46] LABS: ANISOCYTOSIS 0; MACROCYTOSIS 0; PLATELET ESTIMATE DECREASED
[2020-04-03] MEDS: LEVOTHYROXINE NA 75 MCG TABLET (FP) PO SCH (06:15)
[2020-04-03] MEDS: DOCUSATE SODIUM 100 MG CAPSULE (FP) PO SCH ×2 (06:15→14:06)
[2020-04-03] MEDS: INSULIN SLIDING SCALE (NOVOLOG) 1 VIAL SQ SCH ×4 (06:28→21:13)
[2020-04-03 08:19] LABS: BASO % 0.9 % (0-2.0); EOS % 0.7 % (0-4.5); HEMATOCRIT 34.3 % (35.4-49); LYMPH % 16.9 % (8-40); MCH 26.5 pg (25.7-33.7); MCHC 32.2 g/dl (32.0-35.9); MEAN CELL VOLUME 82.3 fl (80-96); MEAN PLT VOLUME 7.7 fl (7.5-11.1); MONO % 17.4 % (3.8-10.2); NEUT % 64.1 % (42.8-82.8); PLATELET COUNT 62 K/MM3 (134-434); RBC 4.16 M/mm3 (4.00-5.60); RDW 18.6 % (11.9-15.9)
[2020-04-03 08:40] LABS: ALBUMIN 3.1 g/dl (3.4-5.0); BLOOD UREA NITROGEN 40.1 mg/dL (7-18); CALCIUM 10.1 mg/dL (8.5-10.1); MAGNESIUM 1.9 mg/dL (1.8-2.4)
[2020-04-03 08:43] LABS: CREATININE 1.6 mg/dL (0.55-1.3)
[2020-04-03 08:45] LABS: TOT PROT 7.5 g/dl (6.4-8.2)
[2020-04-03] MEDS ORDERED: PT OWN MED DRAWER 7, Y5N ONE (10:01)
[2020-04-03] MEDS: CARVEDILOL 3.125 MG TABLET (FP) PO SCH ×2 (10:04→21:05)
[2020-04-03] MEDS: APIXABAN 2.5 MG TABLET PO SCH ×2 (10:04→21:05)
[2020-04-03] MEDS: CHOLECALCIFEROL (VIT D3) 400 UNIT (10 MCG) TABLET PO SCH (10:04)
[2020-04-03] MEDS: TAMSULOSIN HCL 0.4 MG CAP PO SCH (10:04)
[2020-04-03] MEDS: ZINC SULFATE 220 MG CAPSULE (FP) PO SCH (10:05)
[2020-04-03] MEDS: ASCORBIC ACID 500 MG TABLET (FP) PO SCH (10:05)
[2020-04-03] MEDS: HYDROCORTISONE 1% TOPICAL OINT 30 GM TUBE TP SCH ×2 (10:05→21:05)
[2020-04-03] MEDS: FERROUS SO4 325 MG TABLET (FP) PO SCH (10:05)
[2020-04-03] MEDS: VITAMIN B COMPLEX W/C COMBO TABLET (FP) PO SCH (10:06)
[2020-04-03] MEDS: POLYETHYLENE GLYCOL 3350 119 GM BTL PO SCH (10:06)
[2020-04-03 11:21] LABS: ANISOCYTOSIS 1+; MACROCYTOSIS 0; PLATELET ESTIMATE DECREASED
[2020-04-03] MEDS: ONDANSETRON 4 MG/2 ML VIAL IVPUSH PRN (13:14)
[2020-04-03] MEDS ORDERED: DOCUSATE SODIUM 100 MG CAPSULE (FP) PO SCH (22:00)
[2020-04-04] MEDS: INSULIN SLIDING SCALE (NOVOLOG) 1 VIAL SQ SCH ×4 (06:35→21:21)
[2020-04-04] MEDS: LEVOTHYROXINE NA 75 MCG TABLET (FP) PO SCH (06:36)
[2020-04-04 08:30] LABS: BASO % 0.3 % (0-2.0); EOS % 0.5 % (0-4.5); HEMATOCRIT 30.4 % (35.4-49); HEMOGLOBIN 9.8 GM/dL (11.7-16.9); LYMPH % 13.6 % (8-40); MCH 26.7 pg (25.7-33.7); MCHC 32.1 g/dl (32.0-35.9); MEAN CELL VOLUME 83.2 fl (80-96); MEAN PLT VOLUME 7.8 fl (7.5-11.1); MONO % 22.9 % (3.8-10.2); NEUT % 62.7 % (42.8-82.8); PLATELET COUNT 58 K/MM3 (134-434); RBC 3.66 M/mm3 (4.00-5.60); RDW 19.1 % (11.9-15.9)
[2020-04-04 08:39] LABS: CALCIUM 9.6 mg/dL (8.5-10.1)
[2020-04-04 08:40] LABS: ALBUMIN 2.9 g/dl (3.4-5.0); BLOOD UREA NITROGEN 54.6 mg/dL (7-18); MAGNESIUM 2.1 mg/dL (1.8-2.4)
[2020-04-04 08:43] LABS: BILIRUBIN,TOTAL 0.8 mg/dL (0.2-1); TOT PROT 6.8 g/dl (6.4-8.2)
[2020-04-04] MEDS ORDERED: PT OWN MED DRAWER 7, Y5N ONE (09:01)
[2020-04-04 09:14] LABS: WHITE BLOOD COUNT 1.9 K/mm3 (4.0-10.0)
[2020-04-04] MEDS: APIXABAN 2.5 MG TABLET PO SCH ×2 (09:23→21:18)
[2020-04-04] MEDS: TAMSULOSIN HCL 0.4 MG CAP PO SCH (09:23)
[2020-04-04] MEDS: FERROUS SO4 325 MG TABLET (FP) PO SCH (09:24)
[2020-04-04] MEDS: ASCORBIC ACID 500 MG TABLET (FP) PO SCH (09:25)
[2020-04-04] MEDS: VITAMIN B COMPLEX W/C COMBO TABLET (FP) PO SCH (09:25)
[2020-04-04] MEDS: ZINC SULFATE 220 MG CAPSULE (FP) PO SCH (09:25)
[2020-04-04] MEDS: CHOLECALCIFEROL (VIT D3) 400 UNIT (10 MCG) TABLET PO SCH (09:26)
[2020-04-04] MEDS ORDERED: POLYETHYLENE GLYCOL 3350 119 GM BTL PO SCH (10:00)
[2020-04-04 14:16] LABS: ANISOCYTOSIS 1+; MACROCYTOSIS 0; PLATELET ESTIMATE DECREASED
[2020-04-04 14:45] VITALS: BMI 20.9
[2020-04-04] MEDS ORDERED: FUROSEMIDE 40 MG/4 ML INJECTABLE VIAL IVPUSH ONE (16:51)
[2020-04-04] MEDS: HYDROCORTISONE 1% TOPICAL OINT 30 GM TUBE TP SCH ×2 (18:05→21:27)
[2020-04-05] MEDS: LEVOTHYROXINE NA 75 MCG TABLET (FP) PO SCH (06:13)
[2020-04-05] MEDS: INSULIN SLIDING SCALE (NOVOLOG) 1 VIAL SQ SCH ×4 (06:17→21:34)
[2020-04-05 08:10] LABS: BASO % 0.4 % (0-2.0); EOS % 0.4 % (0-4.5); HEMATOCRIT 31.3 % (35.4-49); HEMOGLOBIN 10.1 GM/dL (11.7-16.9); LYMPH % 12.1 % (8-40); MCH 26.9 pg (25.7-33.7); MCHC 32.3 g/dl (32.0-35.9); MEAN CELL VOLUME 83.1 fl (80-96); MEAN PLT VOLUME 7.5 fl (7.5-11.1); MONO % 25.4 % (3.8-10.2); NEUT % 61.7 % (42.8-82.8); PLATELET COUNT 56 K/MM3 (134-434); RBC 3.77 M/mm3 (4.00-5.60)
[2020-04-05 08:25] LABS: BLOOD UREA NITROGEN 63.5 mg/dL (7-18); CALCIUM 9.6 mg/dL (8.5-10.1); MAGNESIUM 2.1 mg/dL (1.8-2.4)
[2020-04-05 08:28] LABS: CREATININE 2.2 mg/dL (0.55-1.3)
[2020-04-05 08:30] LABS: BILIRUBIN,TOTAL 0.8 mg/dL (0.2-1); TOT PROT 7.2 g/dl (6.4-8.2)
[2020-04-05] MEDS ORDERED: PT OWN MED DRAWER 7, Y5N ONE (08:33)
[2020-04-05 08:55] LABS: WHITE BLOOD COUNT 1.7 K/mm3 (4.0-10.0)
[2020-04-05] MEDS: APIXABAN 2.5 MG TABLET PO SCH ×2 (09:11→21:34)
[2020-04-05] MEDS: ASCORBIC ACID 500 MG TABLET (FP) PO SCH (09:11)
[2020-04-05] MEDS: ZINC SULFATE 220 MG CAPSULE (FP) PO SCH (09:11)
[2020-04-05] MEDS: TAMSULOSIN HCL 0.4 MG CAP PO SCH (09:11)
[2020-04-05] MEDS: CHOLECALCIFEROL (VIT D3) 400 UNIT (10 MCG) TABLET PO SCH (09:11)
[2020-04-05] MEDS: FERROUS SO4 325 MG TABLET (FP) PO SCH (09:12)
[2020-04-05] MEDS: VITAMIN B COMPLEX W/C COMBO TABLET (FP) PO SCH (09:12)
[2020-04-05] MEDS: HYDROCORTISONE 1% TOPICAL OINT 30 GM TUBE TP SCH ×2 (10:30→21:34)
[2020-04-05 14:35] LABS: ANISOCYTOSIS 1+; MACROCYTOSIS 0; PLATELET ESTIMATE DECREASED
[2020-04-05] MEDS ORDERED: SODIUM CHLORIDE 0.45% 1,000 ML IV SCH (17:15)
[2020-04-05] MEDS: DOCUSATE SODIUM 100 MG CAPSULE (FP) PO SCH (21:34)
[2020-04-06] MEDS: INSULIN SLIDING SCALE (NOVOLOG) 1 VIAL SQ SCH ×4 (06:15→21:40)
[2020-04-06] MEDS: LEVOTHYROXINE NA 75 MCG TABLET (FP) PO SCH (06:16)
[2020-04-06 09:04] LABS: BASO % 0.2 % (0-2.0); EOS % 0.4 % (0-4.5); HEMATOCRIT 32.4 % (35.4-49); HEMOGLOBIN 10.4 GM/dL (11.7-16.9); LYMPH % 11.3 % (8-40); MCH 26.6 pg (25.7-33.7); MCHC 32.2 g/dl (32.0-35.9); MEAN CELL VOLUME 82.7 fl (80-96); MEAN PLT VOLUME 7.4 fl (7.5-11.1); MONO % 22.9 % (3.8-10.2); NEUT % 65.2 % (42.8-82.8); PLATELET COUNT 54 K/MM3 (134-434); RBC 3.92 M/mm3 (4.00-5.60); RDW 19.1 % (11.9-15.9)
[2020-04-06 09:27] LABS: WHITE BLOOD COUNT 1.5 K/mm3 (4.0-10.0)
[2020-04-06 09:29] LABS: BLOOD UREA NITROGEN 60.4 mg/dL (7-18); CALCIUM 9.2 mg/dL (8.5-10.1); MAGNESIUM 2.1 mg/dL (1.8-2.4)
[2020-04-06] MEDS: FERROUS SO4 325 MG TABLET (FP) PO SCH (09:53)
[2020-04-06] MEDS: TAMSULOSIN HCL 0.4 MG CAP PO SCH (09:53)
[2020-04-06] MEDS: CHOLECALCIFEROL (VIT D3) 400 UNIT (10 MCG) TABLET PO SCH (09:53)
[2020-04-06] MEDS: VITAMIN B COMPLEX W/C COMBO TABLET (FP) PO SCH (09:54)
[2020-04-06] MEDS: ZINC SULFATE 220 MG CAPSULE (FP) PO SCH (09:54)
[2020-04-06] MEDS: APIXABAN 2.5 MG TABLET PO SCH ×2 (09:54→21:37)
[2020-04-06] MEDS: ASCORBIC ACID 500 MG TABLET (FP) PO SCH (09:54)
[2020-04-06] MEDS ORDERED: INSULIN (NOVOLOG) ASPART 100 UNITS/ML 10ML VIAL ONE (11:15)
[2020-04-06 11:24] LABS: ANISOCYTOSIS 1+; MACROCYTOSIS 0; OVALOCYTE 1+; PLATELET ESTIMATE DECREASED
[2020-04-06] MEDS: HYDROCORTISONE 1% TOPICAL OINT 30 GM TUBE TP SCH ×2 (11:43→21:39)
[2020-04-06] MEDS: DOCUSATE SODIUM 100 MG CAPSULE (FP) PO SCH (21:37)
[2020-04-06] MEDS: ATORVASTATIN CA 20 MG TABLET (FP) PO SCH (21:37)
[2020-04-07] MEDS: LEVOTHYROXINE NA 75 MCG TABLET (FP) PO SCH (06:03)
[2020-04-07] MEDS: INSULIN SLIDING SCALE (NOVOLOG) 1 VIAL SQ SCH ×4 (06:04→21:51)
[2020-04-07] MEDS ORDERED: PT OWN MED DRAWER 7, Y5N ONE ×3 (08:45→13:22)
[2020-04-07 09:14] LABS: BASO % 0.7 % (0-2.0); EOS % 0.5 % (0-4.5); HEMATOCRIT 31.3 % (35.4-49); LYMPH % 10.1 % (8-40); MCH 26.5 pg (25.7-33.7); MCHC 31.9 g/dl (32.0-35.9); MEAN CELL VOLUME 83.1 fl (80-96); MEAN PLT VOLUME 7.6 fl (7.5-11.1); MONO % 23.7 % (3.8-10.2); PLATELET COUNT 55 K/MM3 (134-434); RBC 3.77 M/mm3 (4.00-5.60); RDW 19.1 % (11.9-15.9)
[2020-04-07] MEDS: CHOLECALCIFEROL (VIT D3) 400 UNIT (10 MCG) TABLET PO SCH (09:30)
[2020-04-07] MEDS: FERROUS SO4 325 MG TABLET (FP) PO SCH (09:30)
[2020-04-07] MEDS: TAMSULOSIN HCL 0.4 MG CAP PO SCH (09:31)
[2020-04-07] MEDS: VITAMIN B COMPLEX W/C COMBO TABLET (FP) PO SCH (09:31)
[2020-04-07] MEDS: APIXABAN 2.5 MG TABLET PO SCH ×2 (09:31→21:50)
[2020-04-07] MEDS: ASCORBIC ACID 500 MG TABLET (FP) PO SCH (09:31)
[2020-04-07] MEDS: HYDROCORTISONE 1% TOPICAL OINT 30 GM TUBE TP SCH ×2 (09:31→21:51)
[2020-04-07] MEDS: ZINC SULFATE 220 MG CAPSULE (FP) PO SCH (09:31)
[2020-04-07 09:34] LABS: WHITE BLOOD COUNT 1.9 K/mm3 (4.0-10.0)
[2020-04-07 09:40] LABS: ALBUMIN 2.9 g/dl (3.4-5.0); BILIRUBIN,TOTAL 1.1 mg/dL (0.2-1)
[2020-04-07 09:42] LABS: CREATININE 1.8 mg/dL (0.55-1.3)
[2020-04-07 10:07] LABS: CALCIUM 9.2 mg/dL (8.5-10.1)
[2020-04-07 10:08] LABS: BLOOD UREA NITROGEN 57.7 mg/dL (7-18); MAGNESIUM 1.9 mg/dL (1.8-2.4)
[2020-04-07] MEDS: CARVEDILOL 3.125 MG TABLET (FP) PO SCH ×2 (10:15→21:50)
[2020-04-07 10:42] LABS: ANISOCYTOSIS 2+; MACROCYTOSIS 0; OVALOCYTE 1+; PLATELET ESTIMATE DECREASED
[2020-04-07] MEDS: MEGESTROL ACETATE 40 MG TABLET PO SCH (11:37)
[2020-04-07] MEDS: ATORVASTATIN CA 20 MG TABLET (FP) PO SCH (21:50)
[2020-04-07] MEDS: DOCUSATE SODIUM 100 MG CAPSULE (FP) PO SCH (21:50)
[2020-04-08] MEDS: LEVOTHYROXINE NA 75 MCG TABLET (FP) PO SCH (06:15)
[2020-04-08] MEDS: INSULIN SLIDING SCALE (NOVOLOG) 1 VIAL SQ SCH ×4 (06:25→22:47)
[2020-04-08 07:47] LABS: BASO % 0.4 % (0-2.0); EOS % 0.5 % (0-4.5); HEMATOCRIT 31.9 % (35.4-49); HEMOGLOBIN 10.4 GM/dL (11.7-16.9); MCH 26.6 pg (25.7-33.7); MCHC 32.5 g/dl (32.0-35.9); MEAN PLT VOLUME 8.2 fl (7.5-11.1); NEUT % 66.1 % (42.8-82.8); PLATELET COUNT 59 K/MM3 (134-434); RBC 3.89 M/mm3 (4.00-5.60); RDW 19.6 % (11.9-15.9)
[2020-04-08 08:14] LABS: CALCIUM 9.4 mg/dL (8.5-10.1)
[2020-04-08 08:15] LABS: ALBUMIN 2.9 g/dl (3.4-5.0); BLOOD UREA NITROGEN 56.8 mg/dL (7-18)
[2020-04-08 08:18] LABS: CREATININE 1.7 mg/dL (0.55-1.3)
[2020-04-08] MEDS ORDERED: PT OWN MED DRAWER 7, Y5N ONE ×3 (09:48→20:29)
[2020-04-08] MEDS: ASCORBIC ACID 500 MG TABLET (FP) PO SCH (10:29)
[2020-04-08] MEDS: CARVEDILOL 3.125 MG TABLET (FP) PO SCH ×2 (10:29→22:32)
[2020-04-08] MEDS: CHOLECALCIFEROL (VIT D3) 400 UNIT (10 MCG) TABLET PO SCH (10:29)
[2020-04-08] MEDS: ZINC SULFATE 220 MG CAPSULE (FP) PO SCH (10:29)
[2020-04-08] MEDS: TAMSULOSIN HCL 0.4 MG CAP PO SCH (10:29)
[2020-04-08] MEDS: FERROUS SO4 325 MG TABLET (FP) PO SCH (10:29)
[2020-04-08] MEDS: APIXABAN 2.5 MG TABLET PO SCH ×2 (10:29→22:32)
[2020-04-08 10:32] LABS: WHITE BLOOD COUNT 1.9 K/mm3 (4.0-10.0)
[2020-04-08] MEDS: VITAMIN B COMPLEX W/C COMBO TABLET (FP) PO SCH (10:32)
[2020-04-08] MEDS: MEGESTROL ACETATE 40 MG TABLET PO SCH (10:32)
[2020-04-08] MEDS: HYDROCORTISONE 1% TOPICAL OINT 30 GM TUBE TP SCH ×2 (10:32→22:35)
[2020-04-08 12:01] LABS: ANISOCYTOSIS 1+; MACROCYTOSIS 0; OVALOCYTE 1+; PLATELET ESTIMATE DECREASED
[2020-04-08] MEDS: DOCUSATE SODIUM 100 MG CAPSULE (FP) PO SCH (22:32)
[2020-04-08] MEDS: ATORVASTATIN CA 20 MG TABLET (FP) PO SCH (22:32)
[2020-04-09] MEDS: LEVOTHYROXINE NA 75 MCG TABLET (FP) PO SCH (06:24)
[2020-04-09] MEDS: INSULIN SLIDING SCALE (NOVOLOG) 1 VIAL SQ SCH ×4 (06:28→22:37)
[2020-04-09 08:41] LABS: BASO % 0.2 % (0-2.0); EOS % 0.4 % (0-4.5); HEMATOCRIT 32.4 % (35.4-49); HEMOGLOBIN 10.3 GM/dL (11.7-16.9); LYMPH % 7.5 % (8-40); MCH 26.4 pg (25.7-33.7); MCHC 31.7 g/dl (32.0-35.9); MEAN CELL VOLUME 83.4 fl (80-96); MEAN PLT VOLUME 8.6 fl (7.5-11.1); MONO % 18.9 % (3.8-10.2); PLATELET COUNT 62 K/MM3 (134-434); RBC 3.89 M/mm3 (4.00-5.60); RDW 19.6 % (11.9-15.9); WHITE BLOOD COUNT 2.3 K/mm3 (4.0-10.0)
[2020-04-09 08:53] LABS: CALCIUM 9.7 mg/dL (8.5-10.1)
[2020-04-09 08:54] LABS: BLOOD UREA NITROGEN 58.6 mg/dL (7-18); MAGNESIUM 2.1 mg/dL (1.8-2.4)
[2020-04-09 08:57] LABS: CREATININE 1.9 mg/dL (0.55-1.3)
[2020-04-09 08:59] LABS: BILIRUBIN,TOTAL 1.4 mg/dL (0.2-1); TOT PROT 7.5 g/dl (6.4-8.2)
[2020-04-09] MEDS ORDERED: PT OWN MED DRAWER 7, Y5N ONE (10:22)
[2020-04-09] MEDS: CHOLECALCIFEROL (VIT D3) 400 UNIT (10 MCG) TABLET PO SCH (10:23)
[2020-04-09] MEDS: MEGESTROL ACETATE 40 MG TABLET PO SCH (10:23)
[2020-04-09] MEDS: APIXABAN 2.5 MG TABLET PO SCH ×2 (10:23→22:35)
[2020-04-09] MEDS: CARVEDILOL 3.125 MG TABLET (FP) PO SCH ×2 (10:23→22:36)
[2020-04-09] MEDS: TAMSULOSIN HCL 0.4 MG CAP PO SCH (10:23)
[2020-04-09] MEDS: ASCORBIC ACID 500 MG TABLET (FP) PO SCH (10:23)
[2020-04-09] MEDS: ZINC SULFATE 220 MG CAPSULE (FP) PO SCH (10:23)
[2020-04-09] MEDS: FERROUS SO4 325 MG TABLET (FP) PO SCH (10:23)
[2020-04-09] MEDS: HYDROCORTISONE 1% TOPICAL OINT 30 GM TUBE TP SCH ×2 (10:24→22:36)
[2020-04-09] MEDS: VITAMIN B COMPLEX W/C COMBO TABLET (FP) PO SCH (10:24)
[2020-04-09 11:11] LABS: ANISOCYTOSIS 1+; MACROCYTOSIS 0; OVALOCYTE 1+; PLATELET ESTIMATE DECREASED
[2020-04-09] MEDS: POTASSIUM CHLORIDE 10 MEQ in AMINO ACIDS 4.25%/D5W 1,000 ML IV SCH (16:40)
[2020-04-09] MEDS: ATORVASTATIN CA 20 MG TABLET (FP) PO SCH (22:35)
[2020-04-09] MEDS: DOCUSATE SODIUM 100 MG CAPSULE (FP) PO SCH (22:35)
[2020-04-10] MEDS: LEVOTHYROXINE NA 75 MCG TABLET (FP) PO SCH (06:15)
[2020-04-10] MEDS: INSULIN SLIDING SCALE (NOVOLOG) 1 VIAL SQ SCH ×4 (06:17→21:05)
[2020-04-10] MEDS: ACETAMINOPHEN 325 MG TABLET (FP) PO PRN ×2 (06:43→18:19)
[2020-04-10] MEDS: TAMSULOSIN HCL 0.4 MG CAP PO SCH (08:26)
[2020-04-10] MEDS: APIXABAN 2.5 MG TABLET PO SCH ×3 (10:10→21:05)
[2020-04-10] MEDS: ASCORBIC ACID 500 MG TABLET (FP) PO SCH (10:10)
[2020-04-10] MEDS: ZINC SULFATE 220 MG CAPSULE (FP) PO SCH (10:10)
[2020-04-10] MEDS: CHOLECALCIFEROL (VIT D3) 400 UNIT (10 MCG) TABLET PO SCH (10:10)
[2020-04-10] MEDS: CARVEDILOL 3.125 MG TABLET (FP) PO SCH ×3 (10:10→21:05)
[2020-04-10] MEDS ORDERED: PT OWN MED DRAWER 7, Y5N ONE (10:12)
[2020-04-10] MEDS: MEGESTROL ACETATE 40 MG TABLET PO SCH (10:13)
[2020-04-10] MEDS: VITAMIN B COMPLEX W/C COMBO TABLET (FP) PO SCH (10:13)
[2020-04-10] MEDS: FERROUS SO4 325 MG TABLET (FP) PO SCH (10:13)
[2020-04-10] MEDS: HYDROCORTISONE 1% TOPICAL OINT 30 GM TUBE TP SCH ×2 (10:17→21:43)
[2020-04-10 11:04] LABS: BASO % 0.2 % (0-2.0); EOS % 0.4 % (0-4.5); HEMATOCRIT 32.1 % (35.4-49); HEMOGLOBIN 10.3 GM/dL (11.7-16.9); MCH 26.7 pg (25.7-33.7); MCHC 32.2 g/dl (32.0-35.9); MEAN CELL VOLUME 82.8 fl (80-96); MEAN PLT VOLUME 7.5 fl (7.5-11.1); MONO % 21.9 % (3.8-10.2); NEUT % 70.5 % (42.8-82.8); PLATELET COUNT 67 K/MM3 (134-434); RBC 3.88 M/mm3 (4.00-5.60); RDW 19.9 % (11.9-15.9); WHITE BLOOD COUNT 2.1 K/mm3 (4.0-10.0)
[2020-04-10 11:24] LABS: CALCIUM 9.6 mg/dL (8.5-10.1)
[2020-04-10 11:25] LABS: ALBUMIN 2.9 g/dl (3.4-5.0); BLOOD UREA NITROGEN 67.6 mg/dL (7-18); MAGNESIUM 2.1 mg/dL (1.8-2.4)
[2020-04-10 11:28] LABS: CREATININE 1.9 mg/dL (0.55-1.3)
[2020-04-10 11:29] LABS: TOT PROT 7.1 g/dl (6.4-8.2)
[2020-04-10 11:38] LABS: ANISOCYTOSIS 0; MACROCYTOSIS 0; PLATELET ESTIMATE DECREASED
[2020-04-10] MEDS ORDERED: INSULIN (NOVOLOG) ASPART 100 UNITS/ML 10ML VIAL ONE (16:08)
[2020-04-10] MEDS: POTASSIUM CHLORIDE 10 MEQ in AMINO ACIDS 4.25%/D5W 1,000 ML IV SCH ×2 (17:28→18:14)
[2020-04-10] MEDS: DOCUSATE SODIUM 100 MG CAPSULE (FP) PO SCH ×2 (20:52→21:05)
[2020-04-10] MEDS: ATORVASTATIN CA 20 MG TABLET (FP) PO SCH ×2 (20:53→21:05)
[2020-04-11] MEDS: INSULIN SLIDING SCALE (NOVOLOG) 1 VIAL SQ SCH ×4 (06:29→21:56)
[2020-04-11] MEDS: LEVOTHYROXINE NA 75 MCG TABLET (FP) PO SCH (06:31)
[2020-04-11 08:00] LABS: BASO % 0.2 % (0-2.0); EOS % 0.7 % (0-4.5); HEMATOCRIT 31.7 % (35.4-49); HEMOGLOBIN 10.3 GM/dL (11.7-16.9); LYMPH % 10.5 % (8-40); MCH 26.9 pg (25.7-33.7); MCHC 32.6 g/dl (32.0-35.9); MEAN CELL VOLUME 82.5 fl (80-96); MEAN PLT VOLUME 7.4 fl (7.5-11.1); MONO % 20.7 % (3.8-10.2); NEUT % 67.9 % (42.8-82.8); PLATELET COUNT 58 K/MM3 (134-434); RBC 3.83 M/mm3 (4.00-5.60); RDW 19.8 % (11.9-15.9); WHITE BLOOD COUNT 2.1 K/mm3 (4.0-10.0)
[2020-04-11 08:26] LABS: CALCIUM 9.5 mg/dL (8.5-10.1)
[2020-04-11 08:27] LABS: ALBUMIN 2.9 g/dl (3.4-5.0); MAGNESIUM 2.1 mg/dL (1.8-2.4)
[2020-04-11 08:30] LABS: CREATININE 1.9 mg/dL (0.55-1.3)
[2020-04-11 08:31] LABS: BILIRUBIN,TOTAL 1.4 mg/dL (0.2-1); TOT PROT 7.2 g/dl (6.4-8.2)
[2020-04-11] MEDS: TAMSULOSIN HCL 0.4 MG CAP PO SCH (08:55)
[2020-04-11] MEDS ORDERED: POTASSIUM CHLORIDE TABS 20 MEQ TABLET.ER (FP) PO ONE (09:30)
[2020-04-11] MEDS ORDERED: PT OWN MED DRAWER 7, Y5N ONE (09:46)
[2020-04-11] MEDS: CARVEDILOL 3.125 MG TABLET (FP) PO SCH ×2 (09:50→21:46)
[2020-04-11] MEDS: APIXABAN 2.5 MG TABLET PO SCH ×2 (09:50→21:43)
[2020-04-11] MEDS: ZINC SULFATE 220 MG CAPSULE (FP) PO SCH (09:51)
[2020-04-11] MEDS: MEGESTROL ACETATE 40 MG TABLET PO SCH (09:51)
[2020-04-11] MEDS: FERROUS SO4 325 MG TABLET (FP) PO SCH (09:51)
[2020-04-11] MEDS: HYDROCORTISONE 1% TOPICAL OINT 30 GM TUBE TP SCH ×2 (09:52→21:47)
[2020-04-11] MEDS: CHOLECALCIFEROL (VIT D3) 400 UNIT (10 MCG) TABLET PO SCH (09:52)
[2020-04-11] MEDS: VITAMIN B COMPLEX W/C COMBO TABLET (FP) PO SCH (09:52)
[2020-04-11] MEDS: ASCORBIC ACID 500 MG TABLET (FP) PO SCH (09:52)
[2020-04-11 11:37] LABS: ANISOCYTOSIS 2+; MACROCYTOSIS 1+; PLATELET ESTIMATE DECREASED
[2020-04-11] MEDS: POTASSIUM CHLORIDE TABS 20 MEQ TABLET.ER (FP) PO ONE ×2 (13:18→16:13)
[2020-04-11] MEDS: POTASSIUM CHLORIDE 10 MEQ in AMINO ACIDS 4.25%/D5W 1,000 ML IV SCH ×2 (16:32→16:33)
[2020-04-11] MEDS: ATORVASTATIN CA 20 MG TABLET (FP) PO SCH (21:42)
[2020-04-11] MEDS: DOCUSATE SODIUM 100 MG CAPSULE (FP) PO SCH (21:42)
[2020-04-11] MEDS: ACETAMINOPHEN 325 MG TABLET (FP) PO PRN (23:22)
[2020-04-12] MEDS: LEVOTHYROXINE NA 75 MCG TABLET (FP) PO SCH (06:45)
[2020-04-12] MEDS: INSULIN SLIDING SCALE (NOVOLOG) 1 VIAL SQ SCH ×4 (06:50→21:07)
[2020-04-12 08:24] LABS: CALCIUM 9.4 mg/dL (8.5-10.1)
[2020-04-12 08:25] LABS: ALBUMIN 2.8 g/dl (3.4-5.0)
[2020-04-12] MEDS: TAMSULOSIN HCL 0.4 MG CAP PO SCH (08:27)
[2020-04-12 08:28] LABS: CREATININE 1.8 mg/dL (0.55-1.3)
[2020-04-12 08:30] LABS: TOT PROT 6.9 g/dl (6.4-8.2)
[2020-04-12 08:52] LABS: BASO % 0.2 % (0-2.0); EOS % 0.1 % (0-4.5); HEMATOCRIT 34.7 % (35.4-49); HEMOGLOBIN 11.2 GM/dL (11.7-16.9); LYMPH % 6.5 % (8-40); MCH 26.4 pg (25.7-33.7); MCHC 32.2 g/dl (32.0-35.9); MEAN CELL VOLUME 82.2 fl (80-96); MEAN PLT VOLUME 8.2 fl (7.5-11.1); MONO % 14.6 % (3.8-10.2); NEUT % 78.6 % (42.8-82.8); PLATELET COUNT 64 K/MM3 (134-434); RBC 4.22 M/mm3 (4.00-5.60); RDW 19.3 % (11.9-15.9); WHITE BLOOD COUNT 3.1 K/mm3 (4.0-10.0)
[2020-04-12] MEDS ORDERED: PT OWN MED DRAWER 7, Y5N ONE (09:34)
[2020-04-12] MEDS: ACETAMINOPHEN 325 MG TABLET (FP) PO PRN (09:39)
[2020-04-12] MEDS: CARVEDILOL 3.125 MG TABLET (FP) PO SCH ×2 (09:41→21:06)
[2020-04-12] MEDS: APIXABAN 2.5 MG TABLET PO SCH ×2 (09:41→21:05)
[2020-04-12] MEDS: FERROUS SO4 325 MG TABLET (FP) PO SCH (09:41)
[2020-04-12] MEDS: VITAMIN B COMPLEX W/C COMBO TABLET (FP) PO SCH (09:42)
[2020-04-12] MEDS: HYDROCORTISONE 1% TOPICAL OINT 30 GM TUBE TP SCH ×2 (09:42→21:07)
[2020-04-12] MEDS: CHOLECALCIFEROL (VIT D3) 400 UNIT (10 MCG) TABLET PO SCH (09:42)
[2020-04-12] MEDS: ZINC SULFATE 220 MG CAPSULE (FP) PO SCH (09:42)
[2020-04-12] MEDS: MEGESTROL ACETATE 40 MG TABLET PO SCH (09:42)
[2020-04-12] MEDS: ASCORBIC ACID 500 MG TABLET (FP) PO SCH (09:42)
[2020-04-12] MEDS: ONDANSETRON 4 MG/2 ML VIAL IVPUSH PRN (10:34)
[2020-04-12 10:44] LABS: ANISOCYTOSIS 1+; MACROCYTOSIS 1+; OVALOCYTE 1+; PLATELET ESTIMATE DECREASED
[2020-04-12] MEDS: POTASSIUM CHLORIDE 10 MEQ in AMINO ACIDS 4.25%/D5W 1,000 ML IV SCH (16:38)
[2020-04-12] MEDS ORDERED: INSULIN (NOVOLOG) ASPART 100 UNITS/ML 10ML VIAL ONE (17:14)
[2020-04-12] MEDS: DOCUSATE SODIUM 100 MG CAPSULE (FP) PO SCH (21:05)
[2020-04-12] MEDS: ATORVASTATIN CA 20 MG TABLET (FP) PO SCH (21:05)
[2020-04-13] MEDS: LEVOTHYROXINE NA 75 MCG TABLET (FP) PO SCH (06:27)
[2020-04-13] MEDS: INSULIN SLIDING SCALE (NOVOLOG) 1 VIAL SQ SCH ×4 (06:27→22:11)
[2020-04-13 08:03] LABS: BASO % 0.2 % (0-2.0); EOS % 0.5 % (0-4.5); HEMATOCRIT 34.4 % (35.4-49); HEMOGLOBIN 11.3 GM/dL (11.7-16.9); LYMPH % 6.9 % (8-40); MCH 26.9 pg (25.7-33.7); MCHC 32.7 g/dl (32.0-35.9); MEAN CELL VOLUME 82.1 fl (80-96); MEAN PLT VOLUME 8.2 fl (7.5-11.1); MONO % 12.3 % (3.8-10.2); NEUT % 80.1 % (42.8-82.8); PLATELET COUNT 68 K/MM3 (134-434); RBC 4.19 M/mm3 (4.00-5.60); RDW 19.9 % (11.9-15.9)
[2020-04-13 08:14] LABS: BLOOD UREA NITROGEN 86.4 mg/dL (7-18); CALCIUM 9.3 mg/dL (8.5-10.1); MAGNESIUM 1.9 mg/dL (1.8-2.4)
[2020-04-13 08:17] LABS: BILIRUBIN,TOTAL 1.1 mg/dL (0.2-1); CREATININE 2.1 mg/dL (0.55-1.3); TOT PROT 7.5 g/dl (6.4-8.2)
[2020-04-13] MEDS ORDERED: INSULIN (NOVOLOG) ASPART 100 UNITS/ML 10ML VIAL ONE (10:25)
[2020-04-13] MEDS: FERROUS SO4 325 MG TABLET (FP) PO SCH (10:27)
[2020-04-13] MEDS: CARVEDILOL 3.125 MG TABLET (FP) PO SCH ×3 (10:27→22:08)
[2020-04-13] MEDS: ASCORBIC ACID 500 MG TABLET (FP) PO SCH (10:27)
[2020-04-13] MEDS: ZINC SULFATE 220 MG CAPSULE (FP) PO SCH (10:27)
[2020-04-13] MEDS: CHOLECALCIFEROL (VIT D3) 400 UNIT (10 MCG) TABLET PO SCH (10:27)
[2020-04-13] MEDS: TAMSULOSIN HCL 0.4 MG CAP PO SCH (10:27)
[2020-04-13] MEDS: MEGESTROL ACETATE 40 MG TABLET PO SCH (10:28)
[2020-04-13] MEDS: APIXABAN 2.5 MG TABLET PO SCH ×3 (10:28→22:08)
[2020-04-13] MEDS: VITAMIN B COMPLEX W/C COMBO TABLET (FP) PO SCH (10:28)
[2020-04-13] MEDS: HYDROCORTISONE 1% TOPICAL OINT 30 GM TUBE TP SCH ×2 (10:35→22:06)
[2020-04-13 12:03] LABS: ANISOCYTOSIS 1+; MACROCYTOSIS 0; OVALOCYTE 1+; PLATELET ESTIMATE DECREASED
[2020-04-13] MEDS: POTASSIUM CHLORIDE 10 MEQ in AMINO ACIDS 4.25%/D5W 1,000 ML IV SCH ×2 (14:40→16:29)
[2020-04-13] MEDS: ATORVASTATIN CA 20 MG TABLET (FP) PO SCH ×2 (21:59→22:08)
[2020-04-13] MEDS: ACETAMINOPHEN 325 MG TABLET (FP) PO PRN (21:59)
[2020-04-13] MEDS: DOCUSATE SODIUM 100 MG CAPSULE (FP) PO SCH ×2 (21:59→22:08)
[2020-04-14] MEDS: LEVOTHYROXINE NA 75 MCG TABLET (FP) PO SCH (06:21)
[2020-04-14] MEDS: INSULIN SLIDING SCALE (NOVOLOG) 1 VIAL SQ SCH ×4 (06:55→22:02)
[2020-04-14 09:38] LABS: ALBUMIN 2.7 g/dl (3.4-5.0); BLOOD UREA NITROGEN 98.2 mg/dL (7-18); MAGNESIUM 1.7 mg/dL (1.8-2.4)
[2020-04-14 09:40] LABS: CREATININE 1.9 mg/dL (0.55-1.3)
[2020-04-14 09:42] LABS: BILIRUBIN,TOTAL 0.8 mg/dL (0.2-1); TOT PROT 6.9 g/dl (6.4-8.2)
[2020-04-14] MEDS ORDERED: PT OWN MED DRAWER 7, Y5N ONE (09:47)
[2020-04-14] MEDS: CHOLECALCIFEROL (VIT D3) 400 UNIT (10 MCG) TABLET PO SCH ×2 (10:05→13:19)
[2020-04-14] MEDS: VITAMIN B COMPLEX W/C COMBO TABLET (FP) PO SCH ×2 (10:05→13:19)
[2020-04-14] MEDS: MEGESTROL ACETATE 40 MG TABLET PO SCH ×2 (10:05→13:18)
[2020-04-14] MEDS: FERROUS SO4 325 MG TABLET (FP) PO SCH ×2 (10:05→13:18)
[2020-04-14] MEDS: TAMSULOSIN HCL 0.4 MG CAP PO SCH ×2 (10:05→12:56)
[2020-04-14] MEDS: ZINC SULFATE 220 MG CAPSULE (FP) PO SCH ×2 (10:05→13:19)
[2020-04-14] MEDS: ASCORBIC ACID 500 MG TABLET (FP) PO SCH ×2 (10:05→13:19)
[2020-04-14] MEDS: CARVEDILOL 3.125 MG TABLET (FP) PO SCH ×3 (10:06→22:02)
[2020-04-14] MEDS: APIXABAN 2.5 MG TABLET PO SCH ×3 (10:06→22:02)
[2020-04-14] MEDS: POTASSIUM CHLORIDE 10 MEQ in AMINO ACIDS 4.25%/D5W 1,000 ML IV SCH ×2 (10:20→13:20)
[2020-04-14] MEDS: HYDROCORTISONE 1% TOPICAL OINT 30 GM TUBE TP SCH ×2 (12:46→22:04)
[2020-04-14] MEDS: LIDOCAINE 5% TOPICAL PATCH TP SCH (16:00)
[2020-04-14 16:24] LABS: BASO % 0.2 % (0-2.0); EOS % 0.2 % (0-4.5); HEMOGLOBIN 10.6 GM/dL (11.7-16.9); LYMPH % 6.4 % (8-40); MCH 27.1 pg (25.7-33.7); MCHC 33.1 g/dl (32.0-35.9); MEAN CELL VOLUME 81.7 fl (80-96); MEAN PLT VOLUME 8.3 fl (7.5-11.1); MONO % 21.1 % (3.8-10.2); NEUT % 72.1 % (42.8-82.8); PLATELET COUNT 70 K/MM3 (134-434); RBC 3.92 M/mm3 (4.00-5.60); RDW 19.6 % (11.9-15.9); WHITE BLOOD COUNT 3.8 K/mm3 (4.0-10.0)
[2020-04-14 16:37] LABS: CALCIUM 9.4 mg/dL (8.5-10.1)
[2020-04-14 16:38] LABS: ALBUMIN 2.9 g/dl (3.4-5.0); BLOOD UREA NITROGEN 91.7 mg/dL (7-18)
[2020-04-14 16:41] LABS: CREATININE 1.9 mg/dL (0.55-1.3)
[2020-04-14 16:42] LABS: BILIRUBIN,TOTAL 0.8 mg/dL (0.2-1); TOT PROT 7.2 g/dl (6.4-8.2)
[2020-04-14 18:21] LABS: ANISOCYTOSIS 1+; MACROCYTOSIS 0; PLATELET ESTIMATE DECREASED
[2020-04-14] MEDS: ATORVASTATIN CA 20 MG TABLET (FP) PO SCH (22:02)
[2020-04-14] MEDS: DOCUSATE SODIUM 100 MG CAPSULE (FP) PO SCH (22:03)
[2020-04-14] MEDS: LIDOCAINE PATCH REMOVAL MC SCH (22:04)
[2020-04-15] MEDS: POTASSIUM CHLORIDE 10 MEQ in AMINO ACIDS 4.25%/D5W 1,000 ML IV SCH (06:07)
[2020-04-15] MEDS: LEVOTHYROXINE NA 75 MCG TABLET (FP) PO SCH (06:09)
[2020-04-15] MEDS: INSULIN SLIDING SCALE (NOVOLOG) 1 VIAL SQ SCH ×4 (06:09→22:48)
[2020-04-15] MEDS ORDERED: INSULIN (NOVOLOG) ASPART 100 UNITS/ML 10ML VIAL ONE ×2 (06:50→11:40)
[2020-04-15 08:05] LABS: ALBUMIN 2.7 g/dl (3.4-5.0); BLOOD UREA NITROGEN 96.7 mg/dL (7-18)
[2020-04-15 08:09] LABS: CREATININE 2.2 mg/dL (0.55-1.3); TOT PROT 6.7 g/dl (6.4-8.2)
[2020-04-15 08:12] LABS: BILIRUBIN,TOTAL 0.8 mg/dL (0.2-1)
[2020-04-15 08:36] LABS: BASO % 0.2 % (0-2.0); EOS % 0.2 % (0-4.5); HEMATOCRIT 31.4 % (35.4-49); HEMOGLOBIN 10.2 GM/dL (11.7-16.9); LYMPH % 5.7 % (8-40); MCH 26.7 pg (25.7-33.7); MCHC 32.4 g/dl (32.0-35.9); MEAN CELL VOLUME 82.4 fl (80-96); MONO % 17.9 % (3.8-10.2); PLATELET COUNT 66 K/MM3 (134-434); RBC 3.81 M/mm3 (4.00-5.60); RDW 19.9 % (11.9-15.9); WHITE BLOOD COUNT 3.6 K/mm3 (4.0-10.0)
[2020-04-15] MEDS: TAMSULOSIN HCL 0.4 MG CAP PO SCH (10:28)
[2020-04-15] MEDS: CARVEDILOL 3.125 MG TABLET (FP) PO SCH (10:29)
[2020-04-15] MEDS ORDERED: PT OWN MED DRAWER 7, Y5N ONE ×2 (11:42→11:59)
[2020-04-15] MEDS: VITAMIN B COMPLEX W/C COMBO TABLET (FP) PO SCH (11:56)
[2020-04-15] MEDS: MEGESTROL ACETATE 40 MG TABLET PO SCH (11:56)
[2020-04-15] MEDS: LIDOCAINE 5% TOPICAL PATCH TP SCH (12:00)
[2020-04-15] MEDS: CHOLECALCIFEROL (VIT D3) 400 UNIT (10 MCG) TABLET PO SCH (12:00)
[2020-04-15] MEDS: FERROUS SO4 325 MG TABLET (FP) PO SCH (12:00)
[2020-04-15] MEDS: APIXABAN 2.5 MG TABLET PO SCH (12:00)
[2020-04-15] MEDS: ZINC SULFATE 220 MG CAPSULE (FP) PO SCH (12:04)
[2020-04-15] MEDS: ASCORBIC ACID 500 MG TABLET (FP) PO SCH (12:04)
[2020-04-15] MEDS: HYDROCORTISONE 1% TOPICAL OINT 30 GM TUBE TP SCH ×2 (12:21→22:51)
[2020-04-15] MEDS ORDERED: FERROUS SO4 325 MG TABLET (FP) NR SCH (14:36)
[2020-04-15] MEDS ORDERED: ATORVASTATIN CA 20 MG TABLET (FP) NGT SCH (14:37)
[2020-04-15] MEDS: SODIUM BICARBONATE 650 MG TABLET NGT SCH ×2 (14:37→23:08)
[2020-04-15] MEDS ORDERED: ACETAMINOPHEN 650 MG/20.3 ML ORAL SOLUTION (CUPS) NGT PRN (14:38)
[2020-04-15] MEDS ORDERED: ZINC SULFATE 220 MG CAPSULE (FP) NGT SCH (14:38)
[2020-04-15] MEDS ORDERED: LEVOTHYROXINE NA 75 MCG TABLET (FP) NGT SCH (14:40)
[2020-04-15] MEDS: LIDOCAINE PATCH REMOVAL MC SCH (22:59)
[2020-04-15] MEDS: CARVEDILOL 3.125 MG TABLET (FP) NGT SCH (23:09)
[2020-04-15] MEDS: APIXABAN 2.5 MG TABLET NGT SCH (23:09)
[2020-04-16] MEDS: INSULIN SLIDING SCALE (NOVOLOG) 1 VIAL SQ SCH ×4 (06:18→21:30)
[2020-04-16 08:44] LABS: BASO % 0.2 % (0-2.0); EOS % 0.1 % (0-4.5); HEMATOCRIT 29.4 % (35.4-49); HEMOGLOBIN 9.7 GM/dL (11.7-16.9); LYMPH % 9.9 % (8-40); MCH 26.9 pg (25.7-33.7); MCHC 33.1 g/dl (32.0-35.9); MEAN CELL VOLUME 81.1 fl (80-96); MEAN PLT VOLUME 8.1 fl (7.5-11.1); NEUT % 64.8 % (42.8-82.8); PLATELET COUNT 64 K/MM3 (134-434); RBC 3.63 M/mm3 (4.00-5.60); RDW 19.5 % (11.9-15.9); WHITE BLOOD COUNT 3.5 K/mm3 (4.0-10.0)
[2020-04-16 09:11] LABS: ALBUMIN 2.6 g/dl (3.4-5.0); BLOOD UREA NITROGEN 93.8 mg/dL (7-18)
[2020-04-16 09:13] LABS: CALCIUM 8.7 mg/dL (8.5-10.1)
[2020-04-16 09:14] LABS: MAGNESIUM 1.8 mg/dL (1.8-2.4)
[2020-04-16 09:15] LABS: BILIRUBIN,TOTAL 0.8 mg/dL (0.2-1); TOT PROT 6.8 g/dl (6.4-8.2)
[2020-04-16] MEDS ORDERED: FERROUS SO4 300 MG/5 ML ORAL SOLN UNIT DOSE CUPS NGT SCH (10:00)
[2020-04-16] MEDS ORDERED: PT OWN MED DRAWER 7, Y5N ONE ×3 (10:01→12:54)
[2020-04-16] MEDS: LIDOCAINE 5% TOPICAL PATCH TP SCH (10:32)
[2020-04-16] MEDS: HYDROCORTISONE 1% TOPICAL OINT 30 GM TUBE TP SCH ×2 (10:33→21:30)
[2020-04-16] MEDS ORDERED: ACETAMINOPHEN 650 MG/20.3 ML ORAL SOLUTION (CUPS) PO PRN (12:21)
[2020-04-16 12:26] LABS: ANISOCYTOSIS 1+; MACROCYTOSIS 0; OVALOCYTE 1+; PLATELET ESTIMATE DECREASED
[2020-04-16] MEDS: SODIUM BICARBONATE 650 MG TABLET NGT SCH (12:26)
[2020-04-16] MEDS: ASCORBIC ACID 500 MG TABLET (FP) NGT SCH (12:26)
[2020-04-16] MEDS: CARVEDILOL 3.125 MG TABLET (FP) NGT SCH (12:33)
[2020-04-16] MEDS: APIXABAN 2.5 MG TABLET NGT SCH (12:34)
[2020-04-16] MEDS: APIXABAN 2.5 MG TABLET PO SCH ×3 (12:48→21:25)
[2020-04-16] MEDS: AMINO ACIDS/PROTEIN HYDROLYS 30 ML LIQUID.PKT PO SCH ×2 (12:48→13:06)
[2020-04-16] MEDS: CHOLECALCIFEROL (VIT D3) 400 UNIT (10 MCG) TABLET PO SCH ×2 (12:48→13:06)
[2020-04-16] MEDS: CARVEDILOL 3.125 MG TABLET (FP) PO SCH ×2 (12:50→21:25)
[2020-04-16] MEDS: LEVOTHYROXINE NA 75 MCG TABLET (FP) PO SCH (12:56)
[2020-04-16] MEDS: ZINC SULFATE 220 MG CAPSULE (FP) PO SCH (12:56)
[2020-04-16] MEDS: SODIUM BICARBONATE 650 MG TABLET PO SCH ×2 (12:57→21:25)
[2020-04-16] MEDS: FERROUS SO4 300 MG/5 ML ORAL SOLN UNIT DOSE CUPS PO SCH (13:05)
[2020-04-16] MEDS: VITAMIN B COMPLEX W/C COMBO TABLET (FP) PO SCH (13:05)
[2020-04-16] MEDS ORDERED: POTASSIUM CHLORIDE 10 MEQ in AMINO ACIDS 4.25%/D5W 1,000 ML IV SCH (13:15)
[2020-04-16] MEDS ORDERED: INSULIN (NOVOLOG) ASPART 100 UNITS/ML 10ML VIAL ONE (20:41)
[2020-04-16] MEDS: ATORVASTATIN CA 20 MG TABLET (FP) PO SCH (21:25)
[2020-04-16] MEDS: LIDOCAINE PATCH REMOVAL MC SCH (21:29)
[2020-04-17] MEDS: INSULIN SLIDING SCALE (NOVOLOG) 1 VIAL SQ SCH ×4 (06:32→22:19)
[2020-04-17] MEDS: LEVOTHYROXINE NA 75 MCG TABLET (FP) PO SCH (06:33)
[2020-04-17 08:26] LABS: ALBUMIN 2.7 g/dl (3.4-5.0); BLOOD UREA NITROGEN 95.6 mg/dL (7-18); CALCIUM 8.8 mg/dL (8.5-10.1); MAGNESIUM 1.9 mg/dL (1.8-2.4)
[2020-04-17 08:29] LABS: CREATININE 1.9 mg/dL (0.55-1.3)
[2020-04-17 08:31] LABS: TOT PROT 7.1 g/dl (6.4-8.2)
[2020-04-17 08:43] LABS: BASO % 0.3 % (0-2.0); EOS % 0.3 % (0-4.5); HEMATOCRIT 32.2 % (35.4-49); HEMOGLOBIN 10.4 GM/dL (11.7-16.9); LYMPH % 9.7 % (8-40); MCHC 32.2 g/dl (32.0-35.9); MEAN PLT VOLUME 8.4 fl (7.5-11.1); MONO % 22.9 % (3.8-10.2); NEUT % 66.8 % (42.8-82.8); PLATELET COUNT 57 K/MM3 (134-434); RBC 3.84 M/mm3 (4.00-5.60); RDW 20.2 % (11.9-15.9); WHITE BLOOD COUNT 2.8 K/mm3 (4.0-10.0)
[2020-04-17] MEDS ORDERED: PT OWN MED DRAWER 7, Y5N ONE (09:02)
[2020-04-17] MEDS: AMINO ACIDS/PROTEIN HYDROLYS 30 ML LIQUID.PKT PO SCH (09:05)
[2020-04-17] MEDS: VITAMIN B COMPLEX W/C COMBO TABLET (FP) PO SCH (09:05)
[2020-04-17] MEDS: FERROUS SO4 300 MG/5 ML ORAL SOLN UNIT DOSE CUPS PO SCH (09:05)
[2020-04-17] MEDS: CHOLECALCIFEROL (VIT D3) 400 UNIT (10 MCG) TABLET PO SCH (09:06)
[2020-04-17] MEDS: ASCORBIC ACID 500 MG TABLET (FP) NGT SCH (09:06)
[2020-04-17] MEDS: SODIUM BICARBONATE 650 MG TABLET PO SCH ×3 (09:06→22:20)
[2020-04-17] MEDS: ZINC SULFATE 220 MG CAPSULE (FP) PO SCH (09:06)
[2020-04-17] MEDS: LIDOCAINE 5% TOPICAL PATCH TP SCH (09:06)
[2020-04-17] MEDS: CARVEDILOL 3.125 MG TABLET (FP) PO SCH ×2 (09:06→22:16)
[2020-04-17] MEDS: APIXABAN 2.5 MG TABLET PO SCH ×2 (09:06→22:16)
[2020-04-17] MEDS: HYDROCORTISONE 1% TOPICAL OINT 30 GM TUBE TP SCH ×2 (09:22→22:15)
[2020-04-17] MEDS: POTASSIUM CHLORIDE 10 MEQ in AMINO ACIDS 4.25%/D5W 1,000 ML IV SCH (09:49)
[2020-04-17 10:10] LABS: ANISOCYTOSIS 2+; MACROCYTOSIS 2+; OVALOCYTE 1+; PLATELET ESTIMATE DECREASED
[2020-04-17] MEDS ORDERED: SODIUM BICARBONATE 8.4% 50 MEQ/50 ML VIAL IV ONE (12:42)
[2020-04-17] MEDS ORDERED: ACETAMINOPHEN 1000 MG/100 ML BAG IVPB PRN (14:02)
[2020-04-17] MEDS: LIDOCAINE PATCH REMOVAL MC SCH (22:15)
[2020-04-17] MEDS: ATORVASTATIN CA 20 MG TABLET (FP) PO SCH (22:16)
[2020-04-18] MEDS: POTASSIUM CHLORIDE 10 MEQ in AMINO ACIDS 4.25%/D5W 1,000 ML IV SCH ×3 (00:20→14:11)
[2020-04-18] MEDS: SODIUM BICARBONATE 650 MG TABLET PO SCH ×3 (05:59→22:34)
[2020-04-18] MEDS: LEVOTHYROXINE NA 75 MCG TABLET (FP) PO SCH (05:59)
[2020-04-18] MEDS: INSULIN SLIDING SCALE (NOVOLOG) 1 VIAL SQ SCH ×4 (06:54→22:39)
[2020-04-18 09:16] LABS: ALBUMIN 2.6 g/dl (3.4-5.0); CALCIUM 8.9 mg/dL (8.5-10.1)
[2020-04-18 09:17] LABS: MAGNESIUM 1.9 mg/dL (1.8-2.4)
[2020-04-18 09:19] LABS: CREATININE 1.9 mg/dL (0.55-1.3)
[2020-04-18 09:21] LABS: BILIRUBIN,TOTAL 0.9 mg/dL (0.2-1); TOT PROT 6.9 g/dl (6.4-8.2)
[2020-04-18 09:27] LABS: BLOOD UREA NITROGEN 105.2 mg/dL (7-18)
[2020-04-18 09:30] LABS: BASO % 0.3 % (0-2.0); EOS % 0.2 % (0-4.5); HEMATOCRIT 30.9 % (35.4-49); HEMOGLOBIN 9.9 GM/dL (11.7-16.9); LYMPH % 6.8 % (8-40); MCH 26.5 pg (25.7-33.7); MCHC 31.9 g/dl (32.0-35.9); MEAN CELL VOLUME 82.8 fl (80-96); MEAN PLT VOLUME 8.4 fl (7.5-11.1); MONO % 15.1 % (3.8-10.2); NEUT % 77.6 % (42.8-82.8); PLATELET COUNT 59 K/MM3 (134-434); RBC 3.73 M/mm3 (4.00-5.60); RDW 19.8 % (11.9-15.9); WHITE BLOOD COUNT 2.2 K/mm3 (4.0-10.0)
[2020-04-18] MEDS: CARVEDILOL 3.125 MG TABLET (FP) PO SCH ×2 (10:40→22:34)
[2020-04-18] MEDS: CHOLECALCIFEROL (VIT D3) 400 UNIT (10 MCG) TABLET PO SCH (10:40)
[2020-04-18] MEDS: ZINC SULFATE 220 MG CAPSULE (FP) PO SCH (10:40)
[2020-04-18] MEDS: ASCORBIC ACID 500 MG TABLET (FP) NGT SCH (10:40)
[2020-04-18] MEDS: VITAMIN B COMPLEX W/C COMBO TABLET (FP) PO SCH (10:41)
[2020-04-18] MEDS: FERROUS SO4 300 MG/5 ML ORAL SOLN UNIT DOSE CUPS PO SCH (10:41)
[2020-04-18] MEDS: AMINO ACIDS/PROTEIN HYDROLYS 30 ML LIQUID.PKT PO SCH (10:41)
[2020-04-18] MEDS: APIXABAN 2.5 MG TABLET PO SCH ×2 (10:41→22:34)
[2020-04-18] MEDS: LIDOCAINE 5% TOPICAL PATCH TP SCH (10:42)
[2020-04-18] MEDS: HYDROCORTISONE 1% TOPICAL OINT 30 GM TUBE TP SCH ×2 (10:42→22:39)
[2020-04-18 11:26] LABS: ANISOCYTOSIS 1+; MACROCYTOSIS 0; OVALOCYTE 1+; PLATELET ESTIMATE DECREASED; TEAR DROP CELLS 1+
[2020-04-18] MEDS ORDERED: INSULIN (NOVOLOG) ASPART 100 UNITS/ML 10ML VIAL ONE (16:58)
[2020-04-18] MEDS ORDERED: MIRTAZAPINE 15 MG TABLET (FP) PO SCH (22:00)
[2020-04-18] MEDS: LIDOCAINE PATCH REMOVAL MC SCH (22:01)
[2020-04-18] MEDS: ATORVASTATIN CA 20 MG TABLET (FP) PO SCH (22:34)
[2020-04-19] MEDS: POTASSIUM CHLORIDE 10 MEQ in AMINO ACIDS 4.25%/D5W 1,000 ML IV SCH ×3 (03:54→22:21)
[2020-04-19] MEDS: LEVOTHYROXINE NA 75 MCG TABLET (FP) PO SCH (06:13)
[2020-04-19] MEDS: SODIUM BICARBONATE 650 MG TABLET PO SCH ×3 (06:13→22:04)
[2020-04-19] MEDS: INSULIN SLIDING SCALE (NOVOLOG) 1 VIAL SQ SCH ×4 (06:14→22:00)
[2020-04-19 10:24] LABS: BASO % 0.2 % (0-2.0); EOS % 0.2 % (0-4.5); HEMATOCRIT 29.8 % (35.4-49); HEMOGLOBIN 9.8 GM/dL (11.7-16.9); LYMPH % 6.7 % (8-40); MCHC 32.8 g/dl (32.0-35.9); MEAN CELL VOLUME 82.2 fl (80-96); MEAN PLT VOLUME 8.1 fl (7.5-11.1); MONO % 14.8 % (3.8-10.2); NEUT % 78.1 % (42.8-82.8); PLATELET COUNT 61 K/MM3 (134-434); RBC 3.62 M/mm3 (4.00-5.60); RDW 19.3 % (11.9-15.9); WHITE BLOOD COUNT 3.5 K/mm3 (4.0-10.0)
[2020-04-19 10:44] LABS: ALBUMIN 2.6 g/dl (3.4-5.0); CALCIUM 8.7 mg/dL (8.5-10.1); MAGNESIUM 1.9 mg/dL (1.8-2.4)
[2020-04-19 10:47] LABS: CREATININE 1.9 mg/dL (0.55-1.3)
[2020-04-19 10:49] LABS: BILIRUBIN,TOTAL 0.6 mg/dL (0.2-1); TOT PROT 6.9 g/dl (6.4-8.2)
[2020-04-19 11:24] LABS: BLOOD UREA NITROGEN 105.8 mg/dL (7-18)
[2020-04-19] MEDS: ZINC SULFATE 220 MG CAPSULE (FP) PO SCH (11:29)
[2020-04-19] MEDS: APIXABAN 2.5 MG TABLET PO SCH ×2 (11:29→21:48)
[2020-04-19] MEDS: FERROUS SO4 300 MG/5 ML ORAL SOLN UNIT DOSE CUPS PO SCH (11:29)
[2020-04-19] MEDS: CARVEDILOL 3.125 MG TABLET (FP) PO SCH ×2 (11:29→21:48)
[2020-04-19] MEDS: VITAMIN B COMPLEX W/C COMBO TABLET (FP) PO SCH (11:30)
[2020-04-19] MEDS: CHOLECALCIFEROL (VIT D3) 400 UNIT (10 MCG) TABLET PO SCH (11:30)
[2020-04-19] MEDS: AMINO ACIDS/PROTEIN HYDROLYS 30 ML LIQUID.PKT PO SCH (11:30)
[2020-04-19] MEDS: ASCORBIC ACID 500 MG TABLET (FP) NGT SCH (11:30)
[2020-04-19] MEDS ORDERED: PT OWN MED DRAWER 7, Y5N ONE (11:47)
[2020-04-19 12:16] LABS: ANISOCYTOSIS 2+; OVALOCYTE 1+
[2020-04-19] MEDS: HYDROCORTISONE 1% TOPICAL OINT 30 GM TUBE TP SCH ×2 (12:37→22:05)
[2020-04-19] MEDS: LIDOCAINE 5% TOPICAL PATCH TP SCH (12:37)
[2020-04-19] MEDS: LIDOCAINE PATCH REMOVAL MC SCH (21:47)
[2020-04-19] MEDS ORDERED: FAT EMULSION/OLIVE/SOY (CLINOLIPID) 250 ML EMULSION IV SCH (22:00)
[2020-04-19] MEDS: ATORVASTATIN CA 20 MG TABLET (FP) PO SCH (22:04)
[2020-04-19] MEDS: FAT EMULSION/OLIVE/SOY/PHOSPHO 250 ML IV SCH (22:49)
[2020-04-20] MEDS: SODIUM BICARBONATE 650 MG TABLET PO SCH ×3 (05:09→21:49)
[2020-04-20] MEDS: LEVOTHYROXINE NA 75 MCG TABLET (FP) PO SCH (06:06)
[2020-04-20] MEDS: INSULIN SLIDING SCALE (NOVOLOG) 1 VIAL SQ SCH ×4 (06:06→21:56)
[2020-04-20 08:47] LABS: BASO % 0.2 % (0-2.0); EOS % 0.1 % (0-4.5); HEMATOCRIT 29.8 % (35.4-49); HEMOGLOBIN 9.7 GM/dL (11.7-16.9); LYMPH % 6.4 % (8-40); MCH 26.7 pg (25.7-33.7); MCHC 32.6 g/dl (32.0-35.9); MEAN PLT VOLUME 8.1 fl (7.5-11.1); NEUT % 81.3 % (42.8-82.8); PLATELET COUNT 64 K/MM3 (134-434); RBC 3.63 M/mm3 (4.00-5.60); RDW 19.9 % (11.9-15.9); WHITE BLOOD COUNT 3.2 K/mm3 (4.0-10.0)
[2020-04-20 09:16] LABS: CALCIUM 8.8 mg/dL (8.5-10.1)
[2020-04-20 09:17] LABS: ALBUMIN 2.7 g/dl (3.4-5.0); MAGNESIUM 1.9 mg/dL (1.8-2.4)
[2020-04-20 09:21] LABS: BILIRUBIN,TOTAL 0.8 mg/dL (0.2-1)
[2020-04-20 10:19] LABS: BLOOD UREA NITROGEN 122.5 mg/dL (7-18)
[2020-04-20] MEDS ORDERED: PT OWN MED DRAWER 7, Y5N ONE (10:46)
[2020-04-20] MEDS: CARVEDILOL 3.125 MG TABLET (FP) PO SCH ×2 (10:51→21:49)
[2020-04-20] MEDS: APIXABAN 2.5 MG TABLET PO SCH ×2 (10:51→21:49)
[2020-04-20] MEDS: FERROUS SO4 300 MG/5 ML ORAL SOLN UNIT DOSE CUPS PO SCH (10:51)
[2020-04-20] MEDS: ZINC SULFATE 220 MG CAPSULE (FP) PO SCH (10:51)
[2020-04-20] MEDS: AMINO ACIDS/PROTEIN HYDROLYS 30 ML LIQUID.PKT PO SCH (10:52)
[2020-04-20] MEDS: CHOLECALCIFEROL (VIT D3) 400 UNIT (10 MCG) TABLET PO SCH (10:52)
[2020-04-20] MEDS: ASCORBIC ACID 500 MG TABLET (FP) NGT SCH (10:52)
[2020-04-20] MEDS: VITAMIN B COMPLEX W/C COMBO TABLET (FP) PO SCH (10:52)
[2020-04-20] MEDS: LIDOCAINE 5% TOPICAL PATCH TP SCH (10:53)
[2020-04-20] MEDS: HYDROCORTISONE 1% TOPICAL OINT 30 GM TUBE TP SCH ×2 (10:53→21:51)
[2020-04-20 12:04] LABS: ANISOCYTOSIS 1+; MACROCYTOSIS 1+; OVALOCYTE 1+; PLATELET ESTIMATE DECREASED
[2020-04-20] MEDS: POTASSIUM CHLORIDE 10 MEQ in AMINO ACIDS 4.25%/D5W 1,000 ML IV SCH ×2 (14:50→14:51)
[2020-04-20] MEDS ORDERED: INSULIN (NOVOLOG) ASPART 100 UNITS/ML 10ML VIAL ONE (17:47)
[2020-04-20] MEDS: ATORVASTATIN CA 20 MG TABLET (FP) PO SCH (21:49)
[2020-04-20] MEDS: FAT EMULSION/OLIVE/SOY/PHOSPHO 250 ML IV SCH (21:49)
[2020-04-20] MEDS: LIDOCAINE PATCH REMOVAL MC SCH (21:51)
[2020-04-20 22:57] VITALS: BP 114/68; PULSE 87; TEMP 97.6
[2020-04-21] MEDS: POTASSIUM CHLORIDE 10 MEQ in AMINO ACIDS 4.25%/D5W 1,000 ML IV SCH (01:49)
[2020-04-21] MEDS: SODIUM BICARBONATE 650 MG TABLET PO SCH ×2 (06:09→06:14)
[2020-04-21] MEDS: LEVOTHYROXINE NA 75 MCG TABLET (FP) PO SCH ×2 (06:09→06:15)
[2020-04-21] MEDS: INSULIN SLIDING SCALE (NOVOLOG) 1 VIAL SQ SCH (06:13)
== END 2020-04-21 07:23 | disposition expired | DRG 208 ==
LOC: JER 14:19 → JERBED 19:05 → J4S 22:31 → J8W 04-03 16:17 → JICU 04-21 07:05
PROVIDERS: ATTEND Internal Medicine Pulmonary Disease
PROC: 8E0ZXY6 Isolation (ICD-10-PCS; principal; 2020-03-25)
PROC: 3E0G76Z Introduction of Nutritional Substance into Upper GI, Via Natural or Artificial Opening (ICD-10-PCS; 2020-04-14)
PROC: 0DH673Z Insertion of Infusion Device into Stomach, Via Natural or Artificial Opening (ICD-10-PCS; 2020-04-14)
PROC: 5A1935Z Respiratory Ventilation, Less than 24 Consecutive Hours (ICD-10-PCS; 2020-04-21)
PROC: 0CHY7BZ Insertion of Airway into Mouth and Throat, Via Natural or Artificial Opening (ICD-10-PCS; 2020-04-21)
PROC: 5A12012 Performance of Cardiac Output, Single, Manual (ICD-10-PCS; 2020-04-21)
DX: U07.1 COVID-19 (principal); J96.01 Acute respiratory failure with hypoxia; E43 Unspecified severe protein-calorie malnutrition; J90 Pleural effusion, not elsewhere classified; D61.818 Other pancytopenia; N17.9 Acute kidney failure, unspecified; I25.10 Atherosclerotic heart disease of native coronary artery without angina pectoris; E78.5 Hyperlipidemia, unspecified; E03.9 Hypothyroidism, unspecified; D69.6 Thrombocytopenia, unspecified; N40.0 Benign prostatic hyperplasia without lower urinary tract symptoms; I95.9 Hypotension, unspecified; I48.91 Unspecified atrial fibrillation; R59.0 Localized enlarged lymph nodes; I71.9 Aortic aneurysm of unspecified site, without rupture; K74.60 Unspecified cirrhosis of liver; I12.9 Hypertensive chronic kidney disease with stage 1 through stage 4 chronic kidney disease, or unspecified chronic kidney disease; E11.22 Type 2 diabetes mellitus with diabetic chronic kidney disease; N18.9 Chronic kidney disease, unspecified; D64.9 Anemia, unspecified; R41.82 Altered mental status, unspecified; E11.9 Type 2 diabetes mellitus without complications; R21 Rash and other nonspecific skin eruption; D70.9 Neutropenia, unspecified; R62.7 Adult failure to thrive; Z68.20 Body mass index [BMI] 20.0-20.9, adult; Z95.2 Presence of prosthetic heart valve; Z95.810 Presence of automatic (implantable) cardiac defibrillator; Z95.1 Presence of aortocoronary bypass graft; Z71.89 Other specified counseling
CPT/HCPCS: 36415; 71045-TC-FY; 71046-TC-FY; 76705-TC; 76775-TC; 80048; 80053; 81003; 82140; 82436; 82550; 82565; 82728; 82962; 83615; 83735; 84100; 84133; 84300; 84484; 85025; 85379; 85384; 85610; 85651; 85730; 86140; 86769; 86780; 86850; 86900; 86901; 87040; 87086; 87389; 88300-TC; 93005; 93010; 97116-GP; 97161-GP; 99285-25; C9803; J0131; J8999; U0003